=== PATIENT | female | born 2000 | race Caucasian/White ===

== ENCOUNTER 2020-02-04 15:02 | Outpatient (REF) | payer OTHER, SELFPAY | END 2020-02-04 15:03 | disposition home or self-care (01) | LOC: HO.HMGCLNP 15:02 | PROVIDERS: Visit Provider Nurse Practitioner Family | DX: R19.7 Diarrhea, unspecified (principal) | CPT/HCPCS: 87045; 87046; 87177; 87209 ==

== ENCOUNTER 2020-04-08 14:22 | Outpatient (REF) | payer OTHER, SELFPAY | END 2020-04-08 14:23 | disposition home or self-care (01) | LOC: HO.LAB 14:22 | PROVIDERS: Visit Provider Internal Medicine | DX: Z20.828 Contact with and (suspected) exposure to other viral communicable diseases (principal) | CPT/HCPCS: C9803; U0003 ==

== ENCOUNTER 2020-05-13 12:59 | Outpatient (REF) | payer OTHER, SELFPAY | END 2020-05-13 13:00 | disposition home or self-care (01) | LOC: HO.LAB 12:59 | PROVIDERS: Visit Provider Internal Medicine | DX: Z20.822 Contact with and (suspected) exposure to COVID-19 (principal) | CPT/HCPCS: 36415; C9803; U0003 ==

== ENCOUNTER 2020-06-18 13:08 | Outpatient (REF) | payer OTHER, SELFPAY ==
--- NOTE | ~2020-06-18 | US_ITS ---
EXAMINATION: US SCREENING AORTIC CLINICAL INFORMATION: Unspecified abdominal pain and abdominal bruit COMPARISON: None TECHNIQUE: Ultrasound of the abdominal aorta was performed. FINDINGS: Real-time ultrasound of the abdominal aorta is performed. AP and transverse measurements were taken of the proximal, mid and distal aorta. Measurements were taken of the right and left iliac arteries. There is no evidence of aneurysm. There is mild atherosclerotic disease. US/US abdominal aortic aneurysm IMPRESSION: No abdominal aortic or iliac artery aneurysm.
[2020-06-18 13:44] LABS: MANUAL DIFF FLAG NO
[2020-06-18 13:45] LABS: Basophils Percent Auto 0.3 % (0-2); Eosinophils Absolute Auto 0.1 X10*3/uL (0.0-0.4); Eosinophils Percent Auto 0.7 % (0-4); Hematocrit 42.2 % (37-47); Hemoglobin 14.2 g/dl (12.0-16.0); Imm Gran Abs Auto 0.01 X10*3/uL (0.00-0.03); Imm Gran Pct Auto 0.1 % (0.0-0.4); Lymphocytes Percent Auto 27.9 % (20-40); Mean Corpuscular HGB Conc 33.6 g/dl (31.0-35.0); Mean Corpuscular Volume 92.1 fL (80-98); Mean Platelet Volume 12.1 fL (9.4-12.3); Monocytes Absolute Auto 0.4 X10*3/uL (0.1-1.2); Monocytes Percent Auto 6.1 % (2-11); Neutrophils Absolute Auto 4.6 X10*3/uL (2.0-8.3); Neutrophils Percent Auto 64.9 % (45-73); Platelet Count 213 X10*3/uL (160-400); Red Blood Count 4.58 X10*6/uL (4.20-5.50); Red Cell Distribution Width 12.5 % (11.0-16.0)
[2020-06-18 14:15] LABS: Alanine Aminotransferase 21 U/L (0-31); Albumin Level 4.6 g/dL (3.5-5.0); Alkaline Phosphatase 50 U/L (39-117); Anion Gap 14 (12-20); Aspartate Amino Transferase 19 U/L (5-31); Bilirubin Total 0.7 mg/dL (0.0-1.0); Blood Urea Nitrogen 8 mg/dL (9-16); Calcium 9.2 mg/dL (8.4-10.2); Carbon Dioxide 25 mmol/L (22-29); Chloride 105 mmol/L (96-108); Estimated Glomerular Filt Rate > 60; Glucose Random 113 mg/dL (60-115); Potassium 4.1 mmol/L (3.3-5.1); Sodium 140 mmol/L (135-145); Total Protein 7.4 g/dL (6.5-8.0)
[2020-06-18 14:37] LABS: TSH reflex Free T4 1.02 uIU/mL (0.32-4.0)
[2020-06-21 17:26] LABS: TS Negative Control Passed; TS Panel A 0; TS Panel B 0; TS Positive Control Passed; TSpotTB Negative (SeeBelow)
== END 2020-06-18 13:09 | disposition home or self-care (01) ==
LOC: HO.HMGCX 13:08
PROVIDERS: Physician Assistant; PCP Internal Medicine; Visit Provider Nurse Practitioner Family
DX: Z02.1 Encounter for pre-employment examination (principal); R10.9 Unspecified abdominal pain; R11.2 Nausea with vomiting, unspecified; R19.7 Diarrhea, unspecified; R55 Syncope and collapse; R09.89 Other specified symptoms and signs involving the circulatory and respiratory systems; B02.9 Zoster without complications
CPT/HCPCS: 36415; 76706; 80053; 84443; 85025; 86481; 86787

== ENCOUNTER → 2020-10-21 12:55 | Outpatient (BNVA) | payer OTHER, SELFPAY | PROVIDERS: PCP Internal Medicine; Visit Provider Physician Assistant | DX: R19.7 Diarrhea, unspecified (principal); R11.0 Nausea | CPT/HCPCS: 99202 ==

== ENCOUNTER 2020-10-27 13:31 | Emergency (ER) | payer OTHER, SELFPAY ==
--- NOTE | 2020-10-27 | ECG_ITS ---
Test Reason : SYNCOPE Blood Pressure : / mmHG Vent. Rate : 077 BPM Atrial Rate : 077 BPM P-R Int : 102 ms QRS Dur : 086 ms QT Int : 370 ms P-R-T Axes : 050 065 008 degrees QTc Int : 418 ms Sinus rhythm with short NH Otherwise normal ECG No previous ECGs available Referred By: Generic ED Physician Electronically Signed By:VINICIUS RILEY MD
[2020-10-27 14:45] VITALS: BP 133/86; PULSE 82; RESP 16; TEMP 36.7; O2SAT 99; BMI 19.6
[2020-10-27 15:16] LABS: MANUAL DIFF FLAG NO
[2020-10-27 15:19] LABS: Basophils Percent Auto 0.2 % (0-2); Eosinophils Absolute Auto 0.1 X10*3/uL (0.0-0.4); Eosinophils Percent Auto 0.7 % (0-4); Hematocrit 43.1 % (37-47); Hemoglobin 14.4 g/dl (12.0-16.0); Imm Gran Abs Auto 0.02 X10*3/uL (0.00-0.03); Imm Gran Pct Auto 0.2 % (0.0-0.4); Lymphocytes Absolute Auto 1.4 X10*3/uL (1.2-4.9); Lymphocytes Percent Auto 16.6 % (20-40); Mean Corpuscular HGB Conc 33.4 g/dl (31.0-35.0); Mean Corpuscular Hemoglobin 31.3 pg (27.0-33.0); Mean Corpuscular Volume 93.7 fL (80-98); Mean Platelet Volume 11.3 fL (9.4-12.3); Monocytes Absolute Auto 0.5 X10*3/uL (0.1-1.2); Monocytes Percent Auto 5.7 % (2-11); Neutrophils Absolute Auto 6.4 X10*3/uL (2.0-8.3); Neutrophils Percent Auto 76.6 % (45-73); Platelet Count 219 X10*3/uL (160-400); Red Cell Distribution Width 12.4 % (11.0-16.0); White Blood Count 8.3 X10*3/uL (4.8-10.8)
[2020-10-27 15:40] LABS: Anion Gap 12 (12-20); Blood Urea Nitrogen 7 mg/dL (9-16); Calcium 9.8 mg/dL (8.4-10.2); Carbon Dioxide 28 mmol/L (22-29); Chloride 106 mmol/L (96-108); Creatinine Clr Calc Pharmacy 92.2; Estimated Glomerular Filt Rate > 60; Glucose Random 100 mg/dL (60-115); Potassium 4.5 mmol/L (3.3-5.1); Sodium 141 mmol/L (135-145)
[2020-10-27 15:55] LABS: Appearance Urine CLEAR; Color Urine COLORLESS; Glucose Urine UA NEG (NEG); Leukocyte Esterase Urine NEG (NEG); Nitrite Urine NEG (NEG); PH 6.5 (5.0-8.0); Specific Gravity - Urine <= 1.005 (1.005-1.025); Urine Blood NEG (NEG); Urine Ketones NEG (NEG); Urine Protein NEG (NEG-TRACE)
[2020-10-27 15:56] LABS: UPreg QC Valid YES; Urine Pregnancy NEGATIVE (NEGATIVE)
--- NOTE | 2020-10-27 17:54 | ED_ITS ---
HPI - Syncope General Chief Complaint: Syncope Stated Complaint: pt passed out 4x's in a month Time Seen by Provider: 10/27/20 17:44 Source: patient Mode of arrival: ambulatory Limitations: no limitations History of Present Illness HPI narrative: patient comes to the emergency room complaining of a near syncopal episode. Patient states that this afternoon, patient was lying on her couch, patient stood up quickly, and then started feeling lightheaded. Patient lowered herself down. Did not hit her head, did not lose consciousness. Patient states in the last month, this has happened [address] ates that she has been having diarrhea for over a month, currently being treated by gastroenterology. Patient denies chest pain, no shortness of breath. At this time patient is asymptomatic MD complaint: loss of consciousness Related Data Home Medications Medication Instructions Recorded Confirmed etonogestrel 0.12 mg-ethinyl 0 vag ring VAGINAL 02/04/20 10/21/20 estradiol 0.015 mg/24 hr vaginal ring Previous Rx's Medication Instructions Recorded pantoprazole 20 mg tablet,delayed 20 mg PO DAILY 30 Days #30 tab 09/13/20 release bisacodyl 5 mg tablet,delayed 10 mg PO ONCE 1 Days #2 tab 10/21/20 release loperamide 2 mg capsule 2 mg PO Q6H PRN #30 cap 10/21/20 polyethylene glycol 3350 17 238 g PO ONCE 1 Days #238 g 10/21/20 gram/dose oral powder Allergies Allergy/AdvReac Type Severity Reaction Status Date / Time No Known Allergies Allergy Verified 10/21/20 12:56 prazosin AdvReac Unknown heart Verified 10/21/20 12:56 palpitations sertraline AdvReac Unknown diarrhea Verified 10/21/20 12:56 Review of Systems Review of Systems: Constitutional : No Weight loss, No Fever, No Chills, No Night Sweats, No Fatigue, No Malaise ENT/Mouth : No Hearing loss, No Ear Pain, No Nasal Congestion, No Sinus Pain, No Hoarseness, No sore throat, No Rhinorrhea, No Swallowing Difficulty Eyes: No Eye Pain, No Swelling, No Redness, No Foreign Body, No Discharge, No Vision Changes Cardiovascular : No Chest Pain, No SOB, No Dyspnea on Exertion, No Orthopnea, No Edema, No Palpitations Respiratory : No Cough, No Sputum, No Wheezing, No Smoke Exposure, No Dyspnea Gastrointestinal : No Nausea, No Vomiting, No Diarrhea, No Constipation, No abdominal Pain, No Hematochezia, No Melena Genitourinary : no irregular bleeding, No Dysuria, No Urinary Frequency, No Hematuria, No Urinary Incontinence, No Urgency, No Flank Pain, No Urinary Flow Changes, No Hesitancy Musculoskeletal : No joint pain, No Myalgias, No Joint Swelling Skin : No Skin Lesions, No rash Neuro : No Weakness, No Numbness, No Paresthesias, complaining of blacking out / lightheadedness when patient stands up from a sitting or lying down position Psych : No Anxiety/Panic, No Depression, No SI/HI/AH/VH, No Social Issues, Heme/Lymph: No Bruising, No Bleeding,No Lymphadenopathy Endocrine : No Polyuria, No Polydipsia, No Temperature Intolerance [facility] Family History Family History (Updated 10/27/20 @ 15:15 by Ellie Bashir PA-C) Unknown No family history of colorectal cancer Social History Social History (Updated 10/27/20 @ 15:15 by Ellie Bashir PA-C) Household Members Other:: family Alcohol intake: never Cigarettes Per Day: 2 Advance Directives: No Advance Directives Information Provided: Yes Physical Exam Vital Signs: Vital Signs: Last Vital Signs Temp 98.1 F 10/27/20 14:45 Pulse 82 10/27/20 14:45 Resp 16 10/27/20 14:45 BP 133/86 10/27/20 14:45 Pulse Ox 99 10/27/20 14:45 Body Mass Index 19.6 Appearance: Alert. Oriented X3. No acute distress. Eyes: Pupils equal, round and reactive to light. ENT: Pharynx normal. Neck: Normal inspection. Neck supple. No lymph nodes noted. No crepitus CVS: Normal heart rate and rhythm. Pulses normal. Normal S1 and S2 Respiratory: No respiratory distress. Breath sounds normal. No Wheezing. No rales Abdomen: Soft and nontender. No rigidity. No distention. good BS x4 Skin: Skin warm and dry. Normal skin color. Normal skin turgor. Extremities: No lower extremity edema. No Lacerations. No Rash Neuro: Oriented X 3. No motor deficit. No sensory deficit. Moving all extermities. No slurred speech. Course Course Course Narrative: The troponin and the D-dimer are pending. Patient would like to be discharged home. Patient states that her sons and her father home alone, needs to go take care of them. Patient requesting to be discharged. I discussed with the patient that we cannot rule out cardiac etiology or pulmonary embolism. I discussed the risks of leaving against medical advice, Including . Patient is aware and agrees with the AMA plan. I discussed with the patient that she is likely passing out secondary to orthostatic hypotension. The syncopal episodes are related to sitting and standing. I discussed with the patient that she will likely also benefit from a Holter monitor, she will follow-up with her primary care physician and discuss this. MDM - Syncope Lab Data Result diagrams: 10/27/20 15:03 10/27/20 15:03 Labs: Lab Results 10/27/20 10/27/20 10/27/20 Range/Units 15:03 15:03 15:31 WBC 8.3 (4.8-10.8) X10*3/uL RBC 4.60 (4.20-5.50) X10*6/uL Hgb 14.4 (12.0-16.0) g/dl Hct 43.1 (37-47) % MCV 93.7 (80-98) fL MCH 31.3 (27.0-33.0) pg MCHC 33.4 (31.0-35.0) g/dl RDW 12.4 (11.0-16.0) % Plt Count 219 (160-400) X10*3/uL MPV 11.3 (9.4-12.3) fL Immature Gran % (Auto) 0.2 (0.0-0.4) % Neut % (Auto) 76.6 H (45-73) % Lymph % (Auto) 16.6 L (20-40) % Coal % (Auto) 5.7 (2-11) % Eos % (Auto) 0.7 (0-4) % Baso % (Auto) 0.2 (0-2) % Lymph # (Auto) 1.4 (1.2-4.9) X10*3/uL [place] # (Auto) 0.5 (0.1-1.2) X10*3/uL Eos # (Auto) 0.1 (0.0-0.4) X10*3/uL Baso # (Auto) 0.0 (0.0-0.2) X10*3/uL Abs Immat Gran (auto) 0.02 (0.00-0.03) X10*3/uL Absolute Neuts (auto) 6.4 (2.0-8.3) X10*3/uL Absolute Nucleated RBC 0.000 (0.0-0.012) X10*3/uL Nucleated RBC % (auto) 0.0 (0.0-0.2) /100WBC Sodium 141 (135-145) mmol/L Potassium 4.5 (3.3-5.1) mmol/L Chloride 106 (96-108) mmol/L Carbon Dioxide 28 (22-29) mmol/L Anion Gap 12 (12-20) BUN 7 L (9-16) mg/dL Creatinine 0.76 (0.5-1.4) mg/dL Estim Creat Clear Calc 92.2 Estimated GFR > 60 Random Glucose 100 (60-115) mg/dL Calcium 9.8 D (8.4-10.2) mg/dL Urine Color COLORLESS Urine Appearance CLEAR Urine pH 6.5 (5.0-8.0) Ur Specific [employer] [place] <= 1.005 (1.005-1.025) Urine Protein NEG (NEG-TRACE) MG/DL Urine Glucose (UA) NEG (NEG) MG/DL Urine Ketones NEG (NEG) MG/DL Urine Blood NEG (NEG) Urine Nitrite NEG (NEG) Ur Leukocyte Esterase NEG (NEG) Urine Test (NEGATIVE) 10/27/20 Range/Units 15:31 WBC (4.8-10.8) X10*3/uL RBC (4.20-5.50) X10*6/uL Hgb (12.0-16.0) g/dl Hct (37-47) % MCV (80-98) fL MCH (27.0-33.0) pg MCHC (31.0-35.0) g/dl RDW (11.0-16.0) % Plt Count (160-400) X10*3/uL MPV (9.4-12.3) fL Immature Gran % (Auto) (0.0-0.4) % Neut % (Auto) (45-73) % Lymph % (Auto) (20-40) % [place] % (Auto) (2-11) % Eos % (Auto) (0-4) % Baso % (Auto) (0-2) % Lymph # (Auto) (1.2-4.9) X10*3/uL [place] # (Auto) (0.1-1.2) X10*3/uL Eos # (Auto) (0.0-0.4) X10*3/uL Baso # (Auto) (0.0-0.2) X10*3/uL Abs Immat Gran (auto) (0.00-0.03) X10*3/uL Absolute Neuts (auto) (2.0-8.3) X10*3/uL Absolute Nucleated RBC (0.0-0.012) X10*3/uL Nucleated RBC % (auto) (0.0-0.2) /100WBC Sodium (135-145) mmol/L Potassium (3.3-5.1) mmol/L Chloride (96-108) mmol/L Carbon Dioxide (22-29) mmol/L Anion Gap (12-20) BUN (9-16) mg/dL Creatinine (0.5-1.4) mg/dL Estim Creat Clear Calc Estimated GFR Random Glucose (60-115) mg/dL Calcium (8.4-10.2) mg/dL Urine Color Urine Appearance Urine pH (5.0-8.0) Ur Specific [employer] (1.005-1.025) Urine Protein (NEG-TRACE) MG/DL Urine Glucose (UA) (NEG) MG/DL Urine Ketones (NEG) MG/DL Urine Blood (NEG) Urine Nitrite (NEG) Ur Leukocyte Esterase (NEG) Urine Test NEGATIVE (NEGATIVE) ECG Data Attestation: I personally reviewed and interpreted this ECG as follows: ( sinus rhythm, heart rate 77, no ST segment depression or elevation, nonspecific T-wave inversion in lead 3, QTC 418) Discharge Plan Discharge Clinical Impression: Autonomic orthostatic hypotension Patient Disposition: Left Against Medical Advice Instructions: Syncope (ED), Hypotension (ED) Additional Instructions: please follow-up with her primary care physician, you may need a Holter monitor. Please follow-up with your primary care physician tomorrow. If you have any wo rsening or new symptoms, please return to the emergency room or call 911 Prescriptions: No Action pantoprazole 20 mg tablet,delayed release (DR/EC) 20 mg PO DAILY 30 Days Qty: 30 RF: 1 etonogestrel-ethinyl estradiol 0.12-0.015 mg/24 hr ring 0 vag ring vaginal RF: 0 loperamide [Imodium A-D] 2 mg capsule 2 mg PO Q6H PRN (Reason: loose stool) Qty: 30 RF: 0 bisacodyl [Dulcolax (bisacodyl)] 5 mg tablet,delayed release (DR/EC) 10 mg PO ONCE 1 Days Qty: 2 RF: 0 polyethylene glycol 3350 [Miralax] 17 gram/dose powder 238 g PO ONCE 1 Days Qty: 238 RF: 0
[2020-10-27 18:53] LABS: Troponin-I High Sensitivity < 3.5 ng/L (<3.5-17.0)
== END 2020-10-27 19:05 | disposition left against medical advice (07) ==
PROVIDERS: Emergency Provider Emergency Medicine; PCP Internal Medicine
DX: I95.1 Orthostatic hypotension (principal)
CPT/HCPCS: 36415; 80048; 81003; 81025; 84484; 85025; 93005; 99283

== ENCOUNTER 2020-11-25 11:56 | Day surgery (SDC) | payer OTHER, SELFPAY ==
[2020-11-18 12:38] VITALS: BMI 19.2
[2020-11-25] VITALS (7 sets, daily range): BP systolic 105–135; BP diastolic 57–90; PULSE 48–72; RESP 10–18; TEMP 36.1–36.7; O2SAT 99–100
[2020-11-25 12:33] LABS: UPreg QC Valid YES; Urine Pregnancy NEGATIVE (NEGATIVE)
--- NOTE | 2020-11-25 14:13 | MHC.SHP ---
Pre-Procedural Eval Section A Date of Service: 11/25/20 Section B Chief Complaint: nausea Relevant Family History (Specify if Yes): No Relevant Social History: Tobacco Use Present Medications: see Short Stay Collaborative assessment (ocp, PPI) Medical History: No relevant PMH History of Previous Operations: No relevant previous surgery Allergies: Allergies Allergy/AdvReac Type Severity Reaction Status Date / Time prazosin AdvReac Unknown heart Verified 11/18/20 12:26 palpitations sertraline AdvReac Unknown diarrhea Verified 11/18/20 12:26 Review of Systems Sugical H&P ROS: Negative: Constitution, Cardiovascular, Respiratory, Neurological, Psychiatric, Hem-Onc, Allergic/Immunologic, Gastrointestinal, Genitourinary, Musculoskeletal, Integumentary, Endocrine and Eyes/Ears/Nose/Throat Exam Surgical H&P Exam: Normal: HEENT, Normal: Heart, Normal: Lungs, Normal: Extremities, Normal: Abdomen, Normal: Skin and Normal: Neurological Plan Diagnosis/Plan: Unchanged I have reviewed the history and physical and performed a pertinent physical examination on my patient. No changes have occurred unless specified.
--- NOTE | 2020-11-25 15:20 | P.OP_ITS ---
Operative Note Operative Note Date of Service: 11/25/20 Narrative: Operative Information Procedure Description: EGD, Colonoscopy FLEXIBLE TRANSORAL UPPER GASTROINTESTINAL ENDOSCOPY AND COLONOSCOPY PROCEDURE NOTE UPPER ENDOSCOPY Consent: Indications for the procedure and potential complications of bleeding, perforation, reaction to medications and missed diagnosis were discussed with the patient and informed consent was obtained. Instrument: Olympus GIF H 190 J mid size upper endoscope Monitoring: Vital signs and clinical assessment, continuous EKG monitoring, Pulse oximetry, Carbon Dioxide monitoring and blood pressure monitoring were done throughout the procedure. Procedure: The patient was placed in the left lateral decubitis position and pre-procedure medications were administered and a bite block was placed. The endoscope was inserted into the mouth and advanced under direct vision to the third part of duodenum. A careful inspection was made as the upper endoscope was withdrawn including a retroflexed examination of the proximal stomach; Findings and interventions are described below. Findings: Larynx:normal Esophagus: GE junction at 40 cm, diaphragm hiatus at 40 cm, normal mucosa - random bx taken Stomach: Normal mucosa. Biopsies were obtained. Grade 2 flap valve on retroflexed examination of the cardia. Seemed to be reduced gastric motility. Duodenum: Normal bulb and descending duodenum, bx taken Intervention: Biopsies as noted above COLONOSCOPY Instrument: Olympus variable stiffness pediatric scope 190L Colonoscopy Monitoring: Vital signs and clinical assessment, continuous EKG monitoring, Pulse oximetry, Carbon Dioxide monitoring and blood pressure monitoring were done throughout the procedure. Colon withdrawal time was 7 minutes. Procedure: The patient was placed in the left lateral decubitis position and pre-procedure medications were administered. After a digital rectal examination of the ano-rectum, the video colonoscope was inserted into the rectum and advanced through the colon to the cecum/TI. The colonoscope was slowly withdrawn in a retrograde panoramic fashion and the colon mucosa was carefully examined including a retroflexed view of the rectum. Findings and interventions are described below. Procedure Difficulty:easy Findings: Appeared to be reduced colonic motility Terminal Ileum-normal, bx taken random colon bx from right and then left and rectal segments Cecum:normal Ascending Colon: normal Transverse Colon -normal Descending Colon:normal Sigmoid Colon: normal Rectum: Retroflexion with small internal hemorrhoids, grade I, mild erythema noted. Anorectum - normal Colon preparation: [place] Bowel Preparation Scale Right colon; 3 Transverse colon: 3 Left colon; 3 (0 = Unprepared colon segment with mucosa not seen due to solid stool that cannot be cleared. 1 = Portion of mucosa of the colon segment seen, but other areas of the colon segment not well seen due to staining, residual stool and/or opaque liquid. 2 = Minor amount of residual staining, small fragments of stool and/or opaque liquid, but mucosa of colon segment seen well. 3 = Entire mucosa of colon segment seen well with no residual staining, small fragments of stool or opaque liquid) Impression and Post Procedure Diagnosis: Endoscopy Findings: possible reduced gastric motility Colonoscopy Findings: internal hemorrhoids Plan: Await Pathology results Repeat Colonoscopy aged 45 or earlier if clinically indicated High fiber diet leaflet avoid straining at stool, epsom salts and sitz bath, anusol supps or cream consider sitz marker study to check for colonic dyssnergia and GES for gastroparesis if bx negative Above findings were reviewed with the patient and relevant handouts were provided if indicated.
--- NOTE | 2020-11-25 15:20 | PM.OP ---
Brief Operative Note Date of Service: 11/25/20 Pre-op diagnosis: abdominal pain Post-op diagnosis: same Procedure: see op note Surgeon: Hui Gardiner MD Anesthesia: MAC Was an Neon Light Installer used for this Procedure?: No Estimated blood loss (mL): 0 Condition: stable Disposition: PACU
== END 2020-11-25 15:53 | disposition home or self-care (01) ==
PROVIDERS: Anesthesiology; PCP Internal Medicine; Visit Provider Internal Medicine Gastroenterology
PROC: (CPT 45380; principal; 2020-11-25 13:00)
DX: K31.84 Gastroparesis (principal); R11.0 Nausea; K64.0 First degree hemorrhoids; F17.210 Nicotine dependence, cigarettes, uncomplicated; Z79.899 Other long term (current) drug therapy; Z88.8 Allergy status to other drugs, medicaments and biological substances; K44.9 Diaphragmatic hernia without obstruction or gangrene
CPT/HCPCS: 45380; 43239; 81025; 88305; 88342

== ENCOUNTER 2020-12-16 11:37 | Emergency (ER) | payer OTHER, SELFPAY ==
[2020-12-16 12:34] VITALS: BP 119/81; PULSE 60; RESP 16; TEMP 37.1; O2SAT 99; BMI 19.8
[2020-12-16 13:43] VITALS: BP 104/74; PULSE 66; RESP 17; TEMP 37; O2SAT 100
--- NOTE | 2020-12-16 13:51 | PC.NURSE ---
iv inserted labs drawn, pt awaiting to see provider
[2020-12-16 13:55] LABS: MANUAL DIFF FLAG NO
[2020-12-16 13:57] LABS: Basophils Percent Auto 0.2 % (0-2); Eosinophils Absolute Auto 0.1 X10*3/uL (0.0-0.4); Eosinophils Percent Auto 1.2 % (0-4); Hematocrit 35.2 % (37-47); Hemoglobin 12.1 g/dl (12.0-16.0); Imm Gran Abs Auto 0.01 X10*3/uL (0.00-0.03); Imm Gran Pct Auto 0.2 % (0.0-0.4); Lymphocytes Absolute Auto 1.8 X10*3/uL (1.2-4.9); Mean Corpuscular HGB Conc 34.4 g/dl (31.0-35.0); Mean Corpuscular Hemoglobin 31.5 pg (27.0-33.0); Mean Corpuscular Volume 91.7 fL (80-98); Mean Platelet Volume 11.6 fL (9.4-12.3); Monocytes Absolute Auto 0.4 X10*3/uL (0.1-1.2); Monocytes Percent Auto 7.8 % (2-11); Neutrophils Absolute Auto 2.7 X10*3/uL (2.0-8.3); Neutrophils Percent Auto 54.6 % (45-73); Platelet Count 188 X10*3/uL (160-400); Red Blood Count 3.84 X10*6/uL (4.20-5.50); Red Cell Distribution Width 12.1 % (11.0-16.0)
[2020-12-16 14:33] LABS: Alanine Aminotransferase 24 U/L (0-31); Albumin Level 3.8 g/dL (3.5-5.0); Alkaline Phosphatase 40 U/L (39-117); Anion Gap 10 (12-20); Aspartate Amino Transferase 18 U/L (5-31); Bilirubin Direct 0.2 mg/dL (0.0-0.5); Bilirubin Total 0.4 mg/dL (0.0-1.0); Blood Urea Nitrogen 8 mg/dL (9-16); Calcium 8.5 mg/dL (8.4-10.2); Carbon Dioxide 23 mmol/L (22-29); Chloride 111 mmol/L (96-108); Creatinine Clr Calc Pharmacy 101.1; Estimated Glomerular Filt Rate > 60; Glucose Random 93 mg/dL (60-115); Lipase 15 U/L (8-78); Potassium 3.8 mmol/L (3.3-5.1); Sodium 140 mmol/L (135-145)
--- NOTE | 2020-12-16 15:17 | ED.NAVMDI ---
HPI - Nausea/Vomiting/Diarrhea General Chief complaint: Nausea/Vomiting/Diarrhea Stated complaint: multiple complaints Time Seen by Provider: 12/16/20 15:01 Source: patient Mode of arrival: ambulatory Limitations: no limitations History of Present Illness HPI Narrative: [age] year old female presents 4 months of diarrhea and for which she thinks is a warm that she saw in her stool this morning. Patient had a colonoscopy November 25, which showed grade 1 internal hemorrhoids. No bloody stool, no vomiting, no abdominal pain. No UTI symptoms. PCP has ordered stool cultures. Patient has GI follow-up December 30. Related Data Home Medications Medication Instructions Recorded Confirmed etonogestrel 0.12 mg-ethinyl 0 vag ring VAGINAL 02/04/20 12/06/20 estradiol 0.015 mg/24 hr vaginal ring Previous Rx's Medication Instructions Recorded albendazole 200 mg tablet 400 mg PO ONCE #2 tab 12/16/20 Allergies Allergy/AdvReac Type Severity Reaction Status Date / Time prazosin AdvReac Unknown heart Verified 12/16/20 12:43 palpitations sertraline AdvReac Unknown diarrhea Verified 12/16/20 12:43 Review of Systems Review of Systems: Constitutional : No Weight loss, No Fever, No Chills, No Night Sweats,No Fatigue, No Malaise ENT/Mouth : No Hearing loss, No Ear Pain, No Nasal Congestion, NoSinus Pain, No Hoarseness, No sore throat, No Rhinorrhea, NoSwallowing Difficulty Eyes: No Eye Pain, No Swelling, No Redness, No Foreign Body, NoDischarge, No Vision Changes Cardiovascular : No Chest Pain, No SOB, No Dyspnea on Exertion, NoOrthopnea, No Edema, No Palpitations Respiratory : No Cough, No Sputum, No Wheezing, No Smoke Exposure, No Dyspnea Gastrointestinal : Diarrhea, No Nausea, No Vomiting,, NoConstipation, No abdominal Pain, No Hematochezia, No Melena Genitourinary : no irregular bleeding, No Dysuria, No UrinaryFrequency, No Hematuria, No Urinary Incontinence, No Urgency, No FlankPain, No Urinary Flow Changes, No Hesitancy Musculoskeletal : No joint pain, No Myalgias, No Joint Swelling Skin : No Skin Lesions, No rash Neuro : No Weakness, No Numbness, No Paresthesias, No Loss ofConsciousness, No Dizziness, No Headache Psych : mild anxiety, tremors in hands, , No Depression, No SI/HI/AH/VH, No Social Issues, Endocrine : No Polyuria, No Polydipsia, No Temperature Intolerance [facility] Past Medical History Medical History Syncope, near Family History Family History Unknown No family history of colorectal cancer Other Mental health disorder Social History Social History Household Members Other:: family Housing: Apartment Are you a primary nurse care manager to a significant other at home: No Do you presently have visiting nurse or other home services: No Alcohol intake: never Patient Tobacco Use Status: Current everyday Tobacco user Tobacco use type: Cigarette Cigarettes Per Day: 2 Use of substances other than those prescribed or required for medical reasons: Yes Substance Use Type: Marijuana Advance Directives: Yes Advance Directives Information Provided: Yes Advance Directives on File: No Current occupational status: unemployed Physical Exam Vital Signs: Vital Signs: Last Vital Signs Temp 98.6 F 12/16/20 13:43 Pulse 66 12/16/20 13:43 Resp 17 12/16/20 13:43 BP 104/74 12/16/20 13:43 Pulse Ox 100 12/16/20 13:43 Body Mass Index 19.8 Appearance: Alert. Oriented X3. No acute distress. Head: Normal external exam. Normocephalic. Atraumatic. ?No Haile signs noted. No raccoon eyes noted Eyes: PERRLA. EOMI. Conjunctiva and sclera normal. Eyelids normal. ENT: EAC normal. TM's Normal. Pharynx normal. Uvula midline. Moist mucous membranes. ??No trismus noted. ?No drooling noted. ?No muffled voice noted. Neck: Normal inspection. Neck supple. FROM. No adenopathy. Thyroid Normal. No meningeal signs. No neck mass noted. CVS: Normal heart rate and rhythm. Heart sound normal. Pulses normal throughout. ?No murmurs/rales/gallops. Respiratory: No respiratory distress. Painless inspiration. Breath sounds normal. No wheezes/rales/rhonchi noted. Chest nontender. ??No accessory muscle usage noted or decreased air movement noted. Abdomen: Soft and nontender. Bowel sounds normal in all 4 quadrants. No distention noted. ?No organomegaly noted. ?No visible injury noted. Back: ?No CVA tenderness. ?Full range of motion noted. ?No rashes/lesion/induration/fluctuance or signs of infection noted. Skin: Skin warm and dry. ?Normal skin color. ?Normal skin turgor. No rashes/lesions/lacerations noted. Extremities: No lower extremity edema. ??Extremities exhibit normal range of motion. ?Extremities nontender. Neuro: Oriented X 3. ?No motor deficit. ?No sensory deficit. ?Reflexes normal. ?Normal steady gait. ?No focal neuro deficits noted. Vascular: + radial pulses/+ 2 distal pedal pulses/+2 dorsalis pedis b/l. ?Normal cap refill. ?No cyanosis noted to upper extremity nails and lower extremity toes nails. Course Course Course Narrative: 20-year-old non female presents 4 months of diarrhea for which he is being followed with her primary care provider and Gastroenterology. Today patient is concerned because she thinks she saw a worm in her stool. Patient shows me a photo on her phone, which could possibly be an Ascaris worm. It is hard to tell from this photo. Treated patient with albendazole, counseled patient to collect any other were Sil[place] structures and bring them into her primary care or urgent care if she was to happen again. They return precautions. MDM - Nausea/Vomiting/Diarrhea Lab Data Result diagrams: 12/16/20 13:49 12/16/20 13:49 Labs: Lab Results 12/16/20 12/16/20 Range/Units 13:49 13:49 WBC 5.0 (4.8-10.8) X10*3/uL RBC 3.84 L (4.20-5.50) X10*6/uL Hgb 12.1 (12.0-16.0) g/dl Hct 35.2 L (37-47) % MCV 91.7 (80-98) fL MCH 31.5 (27.0-33.0) pg MCHC 34.4 (31.0-35.0) g/dl RDW 12.1 (11.0-16.0) % Plt Count 188 (160-400) X10*3/uL MPV 11.6 (9.4-12.3) fL Immature Gran % (Auto) 0.2 (0.0-0.4) % Neut % (Auto) 54.6 (45-73) % Lymph % (Auto) 36.0 (20-40) % [place] % (Auto) 7.8 (2-11) % Eos % (Auto) 1.2 (0-4) % Baso % (Auto) 0.2 (0-2) % Lymph # (Auto) 1.8 (1.2-4.9) X10*3/uL [place] # (Auto) 0.4 (0.1-1.2) X10*3/uL Eos # (Auto) 0.1 (0.0-0.4) X10*3/uL Baso # (Auto) 0.0 (0.0-0.2) X10*3/uL Abs Immat Gran (auto) 0.01 (0.00-0.03) X10*3/uL Absolute Neuts (auto) 2.7 (2.0-8.3) X10*3/uL Absolute Nucleated RBC 0.000 (0.0-0.012) X10*3/uL Nucleated RBC % (auto) 0.0 (0.0-0.2) /100WBC Sodium 140 (135-145) mmol/L Potassium 3.8 (3.3-5.1) mmol/L Chloride 111 H (96-108) mmol/L Carbon Dioxide 23 (22-29) mmol/L Anion Gap 10 L (12-20) BUN 8 L (9-16) mg/dL Creatinine 0.70 (0.5-1.4) mg/dL Estim Creat Clear Calc 101.1 Estimated GFR > 60 Random Glucose 93 (60-115) mg/dL Calcium 8.5 D (8.4-10.2) mg/dL Total Bilirubin 0.4 (0.0-1.0) mg/dL Direct Bilirubin 0.2 (0.0-0.5) mg/dL AST 18 (5-31) U/L ALT 24 (0-31) U/L Alkaline Phosphatase 40 (39-117) U/L Total Protein 6.0 L (6.5-8.0) g/dL Albumin 3.8 (3.5-5.0) g/dL Lipase 15 (8-78) U/L Beta HCG, Quant < 2 mIU/mL Discharge Plan Discharge Clinical Impression: Diarrhea Qualifiers: Diarrhea type: unspecified type Qualified Code(s): R19.7 - Diarrhea, unspecified Patient Disposition: Home, Self-Care Instructions: Acute Diarrhea (ED) Additional Instructions: Please take the pill that I sent to your pharmacy. Please collect any other worm like structures in her stool and bring them in to be evaluated. Please return to the emergency room if you have fevers, abdominal pain, or any other new or concerning symptoms. Prescriptions: New albendazole 200 mg tablet 400 mg PO ONCE Qty: 2 RF: 0 No Action etonogestrel-ethinyl estradiol 0.12-0.015 mg/24 hr ring 0 vag ring vaginal RF: 0
[2020-12-16 15:52] LABS: HCG Quantitative < 2 mIU/mL
== END 2020-12-16 18:29 | disposition home or self-care (01) ==
PROVIDERS: Physician Assistant; Emergency Provider Internal Medicine; PCP Internal Medicine
DX: R19.7 Diarrhea, unspecified (principal)
CPT/HCPCS: 36415; 80048; 80076; 83690; 84702; 85025; 99283; 99284

== ENCOUNTER 2020-12-22 10:55 | Outpatient (REF) | payer OTHER, SELFPAY ==
[2020-12-22 12:31] LABS: MANUAL DIFF FLAG NO
[2020-12-22 12:45] LABS: Basophils Percent Auto 0.4 % (0-2); Eosinophils Percent Auto 0.6 % (0-4); Hematocrit 39.6 % (37-47); Hemoglobin 13.5 g/dl (12.0-16.0); Imm Gran Abs Auto 0.02 X10*3/uL (0.00-0.03); Imm Gran Pct Auto 0.3 % (0.0-0.4); Lymphocytes Absolute Auto 1.1 X10*3/uL (1.2-4.9); Lymphocytes Percent Auto 16.2 % (20-40); Mean Corpuscular HGB Conc 34.1 g/dl (31.0-35.0); Mean Corpuscular Hemoglobin 31.5 pg (27.0-33.0); Mean Corpuscular Volume 92.5 fL (80-98); Mean Platelet Volume 12.4 fL (9.4-12.3); Monocytes Absolute Auto 0.4 X10*3/uL (0.1-1.2); Monocytes Percent Auto 5.3 % (2-11); Neutrophils Absolute Auto 5.4 X10*3/uL (2.0-8.3); Neutrophils Percent Auto 77.2 % (45-73); Platelet Count 211 X10*3/uL (160-400); Red Blood Count 4.28 X10*6/uL (4.20-5.50); Red Cell Distribution Width 12.7 % (11.0-16.0)
[2020-12-22 13:29] LABS: Erythrocyte Sedimentation Rate 5 MM/HR (0-20)
[2020-12-22 13:32] LABS: Alanine Aminotransferase 21 U/L (0-31); Albumin Level 4.3 g/dL (3.5-5.0); Alkaline Phosphatase 47 U/L (39-117); Anion Gap 12 (12-20); Aspartate Amino Transferase 18 U/L (5-31); Bilirubin Total 0.4 mg/dL (0.0-1.0); Blood Urea Nitrogen 8 mg/dL (9-16); C Reactive Protein 0.28 mg/dL (< or = 0.50); Calcium 9.4 mg/dL (8.4-10.2); Carbon Dioxide 24 mmol/L (22-29); Chloride 109 mmol/L (96-108); Estimated Glomerular Filt Rate > 60; Glucose Random 91 mg/dL (60-115); Potassium 4.2 mmol/L (3.3-5.1); Sodium 141 mmol/L (135-145)
== END 2020-12-22 10:56 | disposition home or self-care (01) ==
LOC: HO.LAB 10:55
PROVIDERS: PCP Internal Medicine; Referring Provider Internal Medicine; Visit Provider Physician Assistant
DX: R19.7 Diarrhea, unspecified (principal); R10.11 Right upper quadrant pain; R74.01 Elevation of levels of liver transaminase levels
CPT/HCPCS: 36415; 80053; 85025; 85652; 86140; 99212

== ENCOUNTER 2020-12-23 03:10 | Outpatient (REF) | payer OTHER, SELFPAY ==
[2020-12-23 10:43] LABS: Leukocytes Stool Qualitative NEGATIVE (NEGATIVE)
[2020-12-23 10:54] LABS: CDiff Gene PCR NEGATIVE (Negative)
[2020-12-28 21:56] LABS: Calprotectin, Fecal 16 mcg/g
== END 2020-12-23 03:11 | disposition home or self-care (01) ==
LOC: HO.LNP 03:10
PROVIDERS: Visit Provider Physician Assistant
DX: R19.7 Diarrhea, unspecified (principal)
CPT/HCPCS: 83993; 87045; 87046; 87329; 87493; 89055

== ENCOUNTER → 2021-01-25 08:07 | Outpatient (BNVA) | payer OTHER, SELFPAY | PROVIDERS: PCP Internal Medicine; Referring Provider Internal Medicine; Visit Provider Physician Assistant ==

== ENCOUNTER 2021-07-08 09:32 | Outpatient (REF) | payer OTHER, SELFPAY ==
[2021-07-10 22:01] LABS: TS Negative Control Passed; TS Panel A 0; TS Panel B 0; TS Positive Control Passed; TSpotTB Negative (Negative)
== END 2021-07-08 09:33 | disposition home or self-care (01) ==
LOC: HO.LAB 09:32
PROVIDERS: PCP Internal Medicine; Visit Provider Internal Medicine
DX: Z11.1 Encounter for screening for respiratory tuberculosis (principal)
CPT/HCPCS: 36415; 86481

== ENCOUNTER 2022-08-01 09:43 | Outpatient (REF) | payer OTHER, SELFPAY ==
[2022-08-03 15:13] LABS: TS Negative Control Passed; TS Panel A 0; TS Panel B 0; TS Positive Control Passed; TSpotTB Negative (Negative)
== END 2022-08-01 09:44 | disposition home or self-care (01) ==
LOC: HO.LAB 09:43
PROVIDERS: PCP Internal Medicine; Visit Provider Internal Medicine
DX: Z11.1 Encounter for screening for respiratory tuberculosis (principal)
CPT/HCPCS: 36415; 86481

== ENCOUNTER 2022-12-29 09:57 | Outpatient (AMB) | payer OTHER, SELFPAY ==
--- NOTE | 2022-12-29 10:02 | AM.OFFVISNUR ---
Intake Intake Visit Reasons: HEP B Allergies prazosin Adverse Reaction (Unknown, Verified 01/03/22 14:23) heart palpitations sertraline Adverse Reaction (Unknown, Verified 01/03/22 14:23) diarrhea Immunizations Recombivax HB (PF) Performing Provider: Mary Ellen Kapadia MD Administered by: Renata Fall RN on 12/29/22 10:10 Dose Route Admin Location Lot Number Expiration Date NDC [employer] 1 mL IM Left Deltoid [id number] 04/01/23 09692-368-14 [employer] VIS Given Date VIS Provided VIS Publication Date 12/29/22 Single Vaccine 22 Eligibility Eligibility Date Funding Source Not [facility] Eligible 12/29/22 Private Administration Comments: Pt aware to return in one month and four months to complete series. Coding Diagnoses Assessment & Plan Assessment & Plan Orders: Orders Hepatitis B Adult Immunization Today Z23 - Encounter for immunization
== END 2022-12-29 11:31 | disposition home or self-care (01) ==
LOC: HO.HMGC 09:57
PROVIDERS: PCP Nurse Practitioner Family; Visit Provider Internal Medicine
DX: Z23 Encounter for immunization (principal)
CPT/HCPCS: 90471; 90746

== ENCOUNTER 2023-01-29 09:34 | Outpatient (AMB) | payer OTHER, SELFPAY ==
--- NOTE | 2023-01-29 09:42 | AM.OFFVISNUR ---
Intake Intake Visit Reasons: Hep B Shot-2nd Dose Intake Note: Hep B #2 Allergies prazosin Adverse Reaction (Unknown, Verified 01/03/22 14:23) heart palpitations sertraline Adverse Reaction (Unknown, Verified 01/03/22 14:23) diarrhea Immunizations Recombivax HB (PF) 10 mcg/mL intramuscular suspension Performing Provider: Mary Ellen Kapadia MD [place] [facility] Documented (not given) by: Renata Fall RN on 01/29/23 09:48 Reason Not Given: Not Given Engerix-B (PF) 20 mcg/mL intramuscular suspension Performing Provider: Mary Ellen Kapadia MD Performing Location: [facility] Administered by: Renata Fall RN on 01/29/23 09:55 Dose Route Admin Location Dispensed Lot Number Expiration Date NDC 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
== END 2023-01-29 11:47 | disposition home or self-care (01) ==
PROVIDERS: PCP Nurse Practitioner Family; Visit Provider Internal Medicine
DX: Z23 Encounter for immunization (principal)
CPT/HCPCS: 90471; 90746

== ENCOUNTER 2023-03-08 13:22 | Outpatient (AMB) | payer OTHER, SELFPAY ==
--- NOTE | 2023-03-08 13:24 | A.OFFPC_ITS ---
Vital Signs 03/08/23 13:26 Height 5 ft 3 in Weight 131 lb BMI 23.2 BP 110/60 Blood Pressure Location Lt brachial Position Sitting Pulse 89 Pulse Source Pulse Oximeter Pulse Oximetry (%) 97 Oxygen Delivery Method Room Air Intake Visit Reasons: Transfer of care Kang/ SUE request Intake Note: Patient here transferring of care from Dr Kang PE request Director Airport Required: No Accompanied by: Significant Other Allergies prazosin Adverse Reaction (Unknown, Verified 03/08/23 13:40) heart palpitations sertraline Adverse Reaction (Unknown, Verified 03/08/23 13:40) diarrhea Medication List - Last Reconciled 03/08/23 by TOMMIE Camejo aripiprazole 5 mg PO DAILY escitalopram oxalate 5 mg PO DAILY etonogestrel-ethinyl estradiol 0.12-0.015 mg/24 hr 0 vag rings vaginal lamotrigine 50 mg PO DAILY prazosin 2 mg PO BEDTIME Tobacco use date assessed: 03/08/23 Dental Screening Dental Screen Date: 03/08/23 Did you have a dental visit in the last 12 months?: No Did you have a dental problem in the last 6 months where you did not have access to dental care?: No Was dental information given to patient?: Patient has dentist HPI HPI Comments History of Present Illness Details 23-year-old female past medical history significant for IBS and lactose intolerance. Patient presents today for physical exam/transfer of care from Dr Kapadia. PHQ-9 positive. Patient does report at times she does feel like she would be better off not here. Patient denies suicidal ideations at this time or plan. Patient states she does have crisis hotline number. Patient currently follows with psychiatrist Count includes the [facility] and states she does have establish care with counselor. Patient states she does feel like her current psychiatry medications are working. Patient advised to follow-up with her psychiatrist regarding this. obgyn: [facility], Pap smear this year. eye exam: Recommended Declined flu shot. Declined lab work, states she recently got at her psychiatrist's office and everything was normal. [facility] Medical History Bloating Syncope, near Surgical History No pertinent past surgical history Family History (Updated 03/08/23 @ 13:44 by TOMMIE Camejo) Unknown No family history of colorectal cancer Mother Multiple sclerosis Father Hypercholesteremia Other Mental health disorder Social History (Updated 03/08/23 @ 13:45 by TOMMIE Camejo) Household Members Other:: family Housing: Apartment Are you a primary skin care instructor to a significant other at home: No Do you presently have visiting nurse or other home services: No Alcohol intake: current Alcohol intake frequency: a few times a month Patient Tobacco Use Status: Current someday Tobacco user Tobacco use type: Cigarette Cigarettes Per Day: 2 e-Cigarette/Vaping Use: Never Used Second Hand Smoke Exposure: No Substance Use Type: Marijuana service: No Current occupational status: employed Current occupational exposures/hazards: No Cognitive needs: No Hearing needs: No Vision needs: No Questionnaire PHQ-9 Over the last 2 weeks, how often have you been bothered by any of the following problems? 1. Little interest or pleasure in doing things: nearly every day 2. Feeling down, depressed, or hopeless: nearly every day 3. Trouble falling or staying asleep, or sleeping too much: not at all 4. Feeling tired or having little energy: nearly every day 5. Poor appetite or overeating: not at all 6. Feeling bad about yourself - or that you are a failure or have let yourself or your family down: nearly every day 7. Trouble concentrating on things, such as reading the newspaper or watching television: more than half the days 8. Moving or speaking so slowly that other people could have noticed. Or the opposite - being so fidgety or restless that you have been moving around a lot more than usual: not at all 9. Thoughts that you would be better off or of hurting yourself in some way: more than half the days Total score: 16 Depression Screening Interpretation: Positive (Follows with [facility]) Depression Screening Follow-up: In treatment Depression Screening Done: Yes Source: Developed by Drs. Perry Major, Denise Diego, Jorge Garcia and colleagues, with an educational tricia from [employer]. Thrive Questionnaire Date Thrive assessed: 03/08/23 I am a: Patient What is your living situation today?: I have a steady place to live Within the past 12 months, did the food you bought not last and you didn't have the money to get more?: Never true Within the past 12 months, did you worry whether your food would run out before you got money to buy more?: Never true Do you have trouble paying for medicines?: No Do you have trouble getting transportation to medical appointments?: No Do you have trouble paying your heating and electricity bill?: No Do you have trouble taking care of your child, family member or friend?: No Do you have trouble with day-to-day activities such as bathing, preparing meals, shopping, managing finances, etc.?: No Are you currently unemployed and looking for a job?: No Are you interested in more education?: No Please select the resources that you would like help with: None Currently or been in a relationship where the following occur: no concerns reported AUDIT C Alcohol Use Questionnaire (AUDIT-C) 1. How often do you have a drink containing alcohol?: Monthly or less 2. How many drinks containing alcohol do you have on a typical day when you are drinking?: 1 or 2 3. How often do you have six or more drinks on one occasion?: Never Total Score: 1 ANAIS-7 AMB Questionnaire ANAIS-7 Date ANAIS - 7 assessed: 03/08/23 Feeling nervous, anxious, or on edge: 3 = Nearly every day Not being able to stop or control worryin = Several days Worrying too much about different things: 3 = Nearly every day Trouble relaxin = Nearly every day Being so restless that it is hard to sit still: 0 = Not at all Becoming easily annoyed or irritable: 3 = Nearly every day Feeling afraid as if something awful might happen: 3 = Nearly every day Total ANAIS-7 score (0-4 normal; 5-9 mild; 10-14 moderate; 15-21 severe): 16 Source: Developed by Drs. Perry Major, Denise Diego, Jorge Garcia and colleagues, with an educational tricia from [employer]. ANAIS-7 Assessment Billing ANAIS-7 Assessment Tool: ANAIS-7 Assessment 74459 Review of Systems Const Denies chills, Denies fatigue, Denies fever(s) and Denies poor appetite Eyes Denies no additional complaints ENT Reports Normal hearing present Card Denies chest pain, Denies syncope, Denies rapid heart rate and Denies dyspnea Resp Denies cough and Denies dyspnea GI Denies change in stool character, Denies constipation, Denies diarrhea, Denies nausea and Denies vomiting Denies urinary frequency, Denies dysuria and Denies urinary urgency Neuro Reports Normal hearing present, Denies confusion and Denies syncope Psych Denies confusion Endo Denies fatigue Physical exam (Primary Care) Vital Signs: Last Vital Signs Pulse 89 03/08/23 13:26 BP 110/60 03/08/23 13:26 Pulse Ox 97 03/08/23 13:26 Oxygen Delivery Method Room Air 03/08/23 13:26 BMI result Body Mass Index 23.2 Tobacco/Smoking Status: Tobacco use Status Tobacco use date assessed 03/08/23 03/08/23 13:36 Patient Tobacco Use Status Current someday Tobacco 03/08/23 13:36 Tobacco use type Cigarette 03/08/23 13:36 e-Cigarette/Vaping Use Never Used 03/08/23 13:36 PHQ-9: PHQ-9 Score PHQ-9: Total score 16 03/08/23 13:36 Depression Screening Interpretation: Positive (Follows with [facility]) Depression Screening Follow-up: In treatment Thrive Assessment: Date of Thrive Assessment Date Thrive assessed 03/08/23 03/08/23 13:36 Currently or been in a relationship where the following occur: no concerns reported Const General: No confusion Orientation/consciousness: No confusion HENMT Head: Yes normocephalic and Yes atraumatic Ears: external ears normal and TM's normal bilaterally General nose exam: Normal external nose present and Normal nasal mucous membranes and turbinates present Face and sinus: Yes normal facial exam and Yes sinuses nontender Mouth: moist mucous membranes Throat: Yes tonsils normal Eyes Conjunctivae: conjunctivae normal Sclerae: sclerae normal Pupils: Equal, round and reactive pupils present and Pupils normal by confrontation EOM: EOMs intact bilaterally Direct Ophthalmoscopy: normal light reflex Neck Neck: Yes no lymphadenopathy and Yes supple Thyroid: Thyroid normal Chest Chest palpation & inspection: normal inspection of the chest Resp Effort & Inspection: normal respiratory effort Auscultation: clear to auscultation bilaterally, no crackles, no rhonchi and no wheezes Cardio Rate: regular rate Rhythm: regular rhythm Peripheral pulses: radial pulses present and dorsalis pedis present GI Inspection: Yes normal to inspection Palpation (GI): Soft to palpation, nontender and No hepatosplenomegaly present Auscultation: normoactive bowel sounds Skin General skin exam: no rashes or lesions noted Neuro General: No confusion Cranial nerves: Yes Equal, round and reactive pupils present and Yes Normal hearing present Cognition (Neuro): normal cognition Gait exam (Neuro): Normal gait present Motor exam (neuro): 5/5 motor strength present throughout Deep tendon reflexes (DTR's): Right brachioradialis reflex intensity grade: 2+, Left brachioradialis reflex intensity grade: 2+, Right patellar reflex intensity grade: 2+ and Left patellar reflex intensity grade: 2+ Extrem General: No edema Office Procedures Flu Questionnaire Does the patient have a severe egg allergy?: No Immunizations flu vacc [id number] 6mos up(PF) 60 mcg(15 mcgx4)/0.5 mL IM syringe Performing Provider: TOMMIE Camejo [facility] Documented (not given) by: RENEE Reyez on 03/08/23 13:37 Reason Not Given: Patient Refused Assessment and Plan Assessment & Plan (1) Depression: Code(s): F32.A - Depression, unspecified Plan: Patient advised to continue to follow with psychiatry to establish care counselor. Continue on current medications. Patient denies SI/HI. Patient states she does have crisis hotline. 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 Patient verbalizes understanding. (2) Physical exam, annual: Code(s): Z00.00 - Encounter for general adult medical examination without abnormal findings Plan: Follow up in 1 year. Plan Follow up in 1 year or sooner if needed. Orders: Orders Influenza [id number] Immunization Today Z23 - Encounter for immunization Coding Level of Care Code Est Pt Prev Care 18-39y([id number]) Diagnoses Depression F32.A Physical exam, annual Z00.00 Additional Codes ANAIS-7 Assessment Billing - ANAIS-7 Assessment Tool: ANAIS-7 Assessment 81901 ([id number])
[2023-03-08 13:26] VITALS: BP 110/60; PULSE 89; O2SAT 97; BMI 23.2
== END 2023-03-08 14:23 | disposition home or self-care (01) ==
PROVIDERS: PCP Nurse Practitioner Family; Visit Provider Nurse Practitioner Family
DX: Z00.00 Encounter for general adult medical examination without abnormal findings (principal); F32.A Depression, unspecified; K58.9 Irritable bowel syndrome, unspecified; E73.9 Lactose intolerance, unspecified; Z23 Encounter for immunization
CPT/HCPCS: 96127; 99395

== ENCOUNTER 2024-02-03 11:58 | Emergency (ER) | payer OTHER, SELFPAY ==
--- NOTE | ~2024-02-03 | CT_ITS ---
EXAMINATION: CT HEAD WITHOUT CONTRAST CLINICAL INFORMATION: History injury, pain COMPARISON: None available. TECHNIQUE: Contiguous axial imaging was performed from the skull base to vertex without intravenous administration of contrast. This CT examination was performed using dose optimization techniques as appropriate, variously including the following: *Automated exposure control *Adjustment of mA and/or kV according to patient size (this includes techniques or standardized protocols for targeted exams where dose is matched to indication/reason for exam; i.e. extremities or head) *Use of iterative reconstruction technique DLP: 633 mGy-cm FINDINGS: No intra-axial or extra-axial hemorrhage. No acute territorial infarct. Ventricles and sulci appear normal. Preservation of henderson-white matter differentiation. No mass, mass effect, or midline shift. No fracture. The mastoid air cells and visualized paranasal sinuses are clear. CT/CT head/brain wo IV con IMPRESSION: No acute intracranial pathology. Electronically signed by: Ramakrishna Serrano MD 02/03/2024 01:04 PM EDT
--- NOTE | 2024-02-03 12:13 | ED_ITS ---
HPI - General Adult General Chief complaint: Head Injury Stated complaint: Head inj Time Seen by Provider: 02/03/24 14:01 Source: patient Mode of arrival: ambulatory Limitations: no limitations History of Present Illness ED Provider: Harlan MENDEZ HPI narrative: 24 yold female healthy with pmh hingles, IBS presents to ED for for scalp laceration. Patient states she was using the bathroom in [facility], she slept from the toilet she hit her head on the hook from the door. Patient states door was closed to the toilet due to bathroom being extremely small. Patient denies any loss of consciousness or any other complaints. Related Data Home Medications ?Medication ?Instructions ?Recorded ?Confirmed etonogestrel 0.12 mg-ethinyl 0 vag ring vaginal 02/04/20 03/08/23 estradiol 0.015 mg/24 hr vaginal ring aripiprazole 5 mg tablet 5 mg PO DAILY 03/08/23 03/08/23 escitalopram oxalate 5 mg tablet 5 mg PO DAILY 03/08/23 03/08/23 lamotrigine 25 mg tablet 50 mg PO DAILY 03/08/23 03/08/23 prazosin 2 mg capsule 2 mg PO BEDTIME 03/08/23 03/08/23 Allergies Allergy/AdvReac Type Severity Reaction Status Date / Time prazosin AdvReac Unknown heart Verified 02/03/24 12:16 palpitations sertraline AdvReac Unknown diarrhea Verified 02/03/24 12:16 Review of Systems 2 Review of Systems: scalp laceration Yes all other systems are reviewed and are negative [facility] Past Medical History Medical History Bloating Syncope, near Surgical History No pertinent past surgical history Family History Family History (Updated 03/08/23 @ 13:44 by TOMMIE Camejo) Unknown No family history of colorectal cancer Mother Multiple sclerosis Father Hypercholesteremia Other Mental health disorder Social History Social History (Updated 03/08/23 @ 13:45 by TOMMIE Camejo) Household Members Other:: family Housing: Apartment Are you a primary zoo caretaker to a significant other at home: No Do you presently have visiting nurse or other home services: No Alcohol intake: current Alcohol intake frequency: a few times a month Patient Tobacco Use Status: Current someday Tobacco user Tobacco use type: Cigarette Cigarettes Per Day: 2 e-Cigarette/Vaping Use: Never Used Second Hand Smoke Exposure: No Substance Use Type: Marijuana Advance Directives: No Advance Directives Information Provided: Yes Do you have a plan to hurt others: No Plan service: No Current occupational status: employed Current occupational exposures/hazards: No Cognitive needs: No Hearing needs: No Vision needs: No Physical Exam ED Vital Signs: Vital Signs - 24 hr 02/03/24 12:15 02/03/24 14:53 02/03/24 15:01 Temperature 97.0 F 97.2 F 97.2 F Pulse Rate 80 94 94 Respiratory Rate 18 14 14 Blood Pressure 125/75 125/80 125/80 Pulse Oximetry 98 99 99 Oxygen Delivery Method Room Air Room Air Room Air BMI result Body Mass Index 21.8 Const General: cooperative, healthy appearing, comfortable, no acute distress, well developed, alert, awake and Physically active Orientation/consciousness: patient oriented x3 HENMT Head: Yes normal to inspection, Yes No palpable skull fracture present, Yes normocephalic and Yes abrasion Head images: 2 1. Scalp laceration/abrasion. Dry blood scab. No need for wilton. Negative for crepitus. Negative for hematomas swelling. Ears: hearing grossly normal bilaterally, external ears normal, TM's normal bilaterally, TM normal on the right, TM normal on the left, EAC's normal, mastoids normal and no periauricular adenopathy Eyes General: appearance normal, both eyes and all related structures Neck Neck: Yes normal visual inspection, Yes full ROM, Yes no lymphadenopathy, Yes no meningeal signs, Yes trachea midline, Yes supple, No anterior neck swelling and No tender Chest Chest palpation & inspection: normal inspection of the chest and normal palpation of entire chest wall Resp Effort & Inspection: normal respiratory effort and able to speak in complete sentences Auscultation: clear to auscultation bilaterally Cardio Jugular venous distension: no JVD Heart sounds: S1 normal heart sound present and S2 normal heart sound present GI Inspection: Yes normal to inspection Palpation (GI): Soft to palpation, not firm, nontender, no guarding and not rigid General: No CVA tenderness and Yes no CVA tenderness Back/Spine/Pelvis Back: no CVA tenderness, No CVA tenderness and No back tenderness Skin General skin exam: no rashes or lesions noted, elasticity normal and turgor normal Neuro General: patient oriented x3, gait normal, tone normal, moves all extremities, Normal light touch and pain sensation, no meningeal signs, no focal motor deficits, CN's II-XI intact bilaterally and normal sensation to monofilament Extrem General: Yes normal to inspection, Yes full ROM and Yes capillary refill normal Psych Appearance: grossly normal, well kempt and not disheveled Course Course Course Narrative: RME performed by Jen Rowland PA-C. Patient is a 24 year old assigned female at presenting to the emergency department with a headache. Patient states yesterday she was in a bathroom stall and leaned forward, hitting her head on a hook. Patient states that she did not lose consciousness. Detailed physical exam and review of systems are deferred to the director of primary care. Imaging ordered. Patient placed back in the waiting room pending room availability and results. Medical Decision Making Medical Decision Making MDM Narrative: Radiating 24-year-old female presents to ED for scalp laceration caused by hitting head on click of bathroom door. Patient presently slight headache no other symptoms. Head CT scan normal. Neuro exam is intact. Whole-body evaluate negative for signs of concerning life-threatening injuries. Patient to be discharged. Patient explained worrisome signs informed to return to the ED immediately. Not suspecting cervical spine fracture skull fracture, brain bleed, or any other life-threatening etiologies. Differential Diagnosis Differential Diagnoses: The differential diagnosis associated with the presentation includes (Brain bleed, skull fracture) Admission/Observation Consideration of admission/observation: Escalation of care including admission/observation considered Independent Interpretation I performed an independent interpretation of an: CT Scan Radiology Impression Discussion of test interpretation with radiology: I have reviewed the radiologist's reading. Independent Historian Clinical information obtained from an independent historian. History obtained from or confirmed by: Other (Patient) External Record Review External record reviewed: Other (Prior visis) Discharge Plan Discharge Clinical Impression: Abrasion, Head injury Patient Disposition: Home, Self-Care Instructions: Head Injury (ED), Abrasion (ED) Additional Instructions: Recommend follow-up with your primary care provider. Return to the ED for any nausea, vomiting, dizziness, neck pain, severe headache, any other concerning symptoms. FINDINGS: No intra-axial or extra-axial hemorrhage. No acute territorial infarct. Ventricles and sulci appear normal. Preservation of henderson-white matter differentiation. No mass, mass effect, or midline shift. No fracture. The mastoid air cells and visualized paranasal sinuses are clear. CT/CT head/brain wo IV con IMPRESSION: No acute intracranial pathology. Electronically signed by: Ramakrishna Serrano MD 02/03/2024 01:04 PM EDT Prescriptions: No Action etonogestrel-ethinyl estradiol 0.12-0.015 mg/24 hr ring 0 vag ring vaginal escitalopram oxalate 5 mg tablet 5 mg PO DAILY prazosin 2 mg capsule 2 mg PO BEDTIME lamotrigine 25 mg tablet 50 mg PO DAILY aripiprazole 5 mg tablet 5 mg PO DAILY Stand Alone Forms: Work/School Release Interventions: ED Discharge Assessment Last Done: 02/03/24 15:01 Discharge Date/Time: 02/03/24 15:02 Print Language: Ugandan
[2024-02-03 12:15] VITALS: BP 125/75; PULSE 80; RESP 18; TEMP 36.1; O2SAT 98; BMI 21.8
[2024-02-03 14:53] VITALS: BP 125/80; PULSE 94; RESP 14; TEMP 36.2; O2SAT 99
[2024-02-03 15:01] VITALS: BP 125/80; PULSE 94; RESP 14; TEMP 36.2; O2SAT 99
== END 2024-02-03 15:02 | disposition home or self-care (01) ==
PROVIDERS: Emergency Provider Emergency Medicine; PCP Nurse Practitioner Family
DX: S00.01XA Abrasion of scalp, initial encounter (principal); R51.9 Headache, unspecified; F17.210 Nicotine dependence, cigarettes, uncomplicated; W26.9XXA Contact with unspecified sharp object(s), initial encounter; Y93.89 Activity, other specified; Y92.511 Restaurant or cafe as the place of occurrence of the external cause; Y99.8 Other external cause status; Z79.899 Other long term (current) drug therapy
CPT/HCPCS: 70450; 99284

== ENCOUNTER 2024-09-03 13:44 | Outpatient (AMB) | payer OTHER, SELFPAY ==
--- NOTE | 2024-09-03 14:02 | MHC.PC.OV ---
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: Present Accompanied by: children Allergies prazosin Adverse Reaction (Unknown, Verified 09/03/24 14:24) heart palpitations sertraline Adverse Reaction (Unknown, Verified 09/03/24 14:24) diarrhea Medication List - Last Reconciled 09/03/24 by Elizabeth Thomas PA-C clonidine HCl 0.05 mg PO BEDTIME etonogestrel-ethinyl estradiol 0.12-0.015 mg/24 hr 0 vag rings vaginal oxcarbazepine 600 mg PO BID Tobacco use date assessed: 09/03/24 Dental Screening Dental Screen Date: 09/03/24 Did you have a dental visit in the last 12 months?: No Did you have a dental problem in the last 6 months where you did not have access to dental care?: No Was dental information given to patient?: No [facility] H[facility] Details 24 year old female with past history of depression and IBS last seen 2022 by [employer] coming in for ARMANI.? Presenting with episodes of syncope. Episodes began last year and occur with heat and physical strain. She experiences accompanying lightheadedness and near-syncope episodes. A history of depression includes marked weight loss, low appetite, and lack of daytime nutritional intake, indicating energy deficits possibly leading to syncope. Anxiety episodes include tachycardia and are exacerbated by environmental noise. Nighttime sweats with occasional smoking associated with nicotine withdrawal. Ongoing irritable bowel syndrome, previously evaluated with a colonoscopy and endoscopy, has mixed presentations of diarrhea and constipation. Recurrent episodes of sharp upper body pain may suggest muscular or gas-related issues instead of cardiac or pulmonary conditions. She follows with [facility] every 2 weeks for her counseling and does also follow with the med provider for psych. [facility] Medical History Bloating Syncope, near Surgical History No pertinent past surgical history Family History Unknown No family history of colorectal cancer Mother Multiple sclerosis Father Hypercholesteremia Other Mental health disorder Social History Household Members Other:: family Housing: Apartment Are you a primary nurse healthcare manager to a significant other at home: No Do you presently have visiting nurse or other home services: No Alcohol intake: current Alcohol intake frequency: a few times a month Patient Tobacco Use Status: Current everyday Tobacco user Tobacco use type: Cigarette Cigarette Packs Per Day: 0.5 Cigarettes Per Day: 10 e-Cigarette/Vaping Use: Never Used Second Hand Smoke Exposure: Yes Substance Use Type: Marijuana service: No Current occupational status: employed Current occupational exposures/hazards: No Cognitive needs: No Hearing needs: No Vision needs: No Questionnaire PHQ-9 Over the last 2 weeks, how often have you been bothered by any of the following problems? 1. Little interest or pleasure in doing things: more than half the days 2. Feeling down, depressed, or hopeless: more than half the days 3. Trouble falling or staying asleep, or sleeping too much: more than half the days 4. Feeling tired or having little energy: more than half the days 5. Poor appetite or overeating: more than half the days 6. Feeling bad about yourself - or that you are a failure or have let yourself or your family down: more than half the days 7. Trouble concentrating on things, such as reading the newspaper or watching television: more than half the days 8. Moving or speaking so slowly that other people could have noticed. Or the opposite - being so fidgety or restless that you have been moving around a lot more than usual: more than half the days 9. Thoughts that you would be better off or of hurting yourself in some way: not at all Total score: 16 Depression Screening Interpretation: Positive Depression Screening Follow-up: Existing condition and In treatment Depression Screening Done: Yes Source: Developed by Drs. Perry Major, Denise Diego, Jorge Garcia and colleagues, with an educational tricia from [email or web address]. Thrive Questionnaire Date Thrive assessed: 09/03/24 I am a: Patient What is your living situation today?: I have a steady place to live Within the past 12 months, did the food you bought not last and you didn't have the money to get more?: Often true Within the past 12 months, did you worry whether your food would run out before you got money to buy more?: I choose not to answer this question Do you have trouble paying for medicines?: No Do you have trouble getting transportation to medical appointments?: No Do you have trouble paying your heating and electricity bill?: No Do you have trouble taking care of your child, family member or friend?: I choose not to answer this question Do you have trouble with day-to-day activities such as bathing, preparing meals, shopping, managing finances, etc.?: No Are you currently unemployed and looking for a job?: No Are you interested in more education?: No Please select the resources that you would like help with: None Currently or been in a relationship where the following occur: I choose not to answer THRIVE Score: 1 AUDIT C Alcohol Use Questionnaire (AUDIT-C) 1. How often do you have a drink containing alcohol?: Never Total Score: 0 ANAIS-7 AMB Questionnaire ANAIS-7 Date ANAIS - 7 assessed: 09/03/24 Feeling nervous, anxious, or on edge: 2 = More than half the days Not being able to stop or control worryin = More than half the days Worrying too much about different things: 2 = More than half the days Trouble relaxin = More than half the days Being so restless that it is hard to sit still: 2 = More than half the days Becoming easily annoyed or irritable: 2 = More than half the days Feeling afraid as if something awful might happen: 2 = More than half the days Total ANAIS-7 score (0-4 normal; 5-9 mild; 10-14 moderate; 15-21 severe): 14 Source: Developed by Drs. Perry Major, Denise Diego, Jorge Garcia and colleagues, with an educational tricia from [email or web address]. ANAIS-7 Assessment Billing ANAIS-7 Assessment Tool: ANAIS-7 Assessment 05792 Review of Systems Const Denies body aches, Denies chills, Denies fever(s), Denies headache(s) and Denies poor appetite Eyes Reports no additional complaints ENT Denies dysphagia, Denies dizziness, Denies headache(s) and Denies odynophagia Card Details: Last presyncopal episode several months ago. She had 2 episodes last year Denies chest pain, Denies syncope, Denies edema, Denies irregular heart rhythm, Denies lightheadedness and Denies dyspnea Resp Denies cough and Denies dyspnea GI Reports abdominal pain, Reports constipation, Denies dysphagia, Reports diarrhea, Denies nausea, Denies odynophagia and Denies vomiting Reports no additional complaints Musc Reports no additional complaints and Denies abnormal gait Skin/Breast Reports system reviewed and no additional complaints, except as documented Neuro Denies abnormal gait, Denies dizziness, Denies syncope and Denies headache(s) Psych Reports no additional complaints Physical exam (Primary Care) Vital Signs: Last Vital Signs Temp 97.3 F 09/03/24 14:03 Pulse 69 09/03/24 14:03 BP 120/72 09/03/24 14:03 Pulse Ox 97 09/03/24 14:03 Oxygen Delivery Method Room Air 09/03/24 14:03 BMI result Body Mass Index 20.1 Tobacco/Smoking Status: Tobacco use Status Tobacco use date assessed 09/03/24 09/03/24 14:11 Patient Tobacco Use Status Current everyday Tobacco 09/03/24 14:11 Tobacco use type Cigarette 09/03/24 14:11 e-Cigarette/Vaping Use Never Used 09/03/24 14:11 PHQ-9: PHQ-9 Score PHQ-9: Total score 16 09/03/24 14:11 Depression Screening Interpretation: Positive Depression Screening Follow-up: Existing condition and In treatment Thrive Assessment: Date of Thrive Assessment Date Thrive assessed 09/03/24 09/03/24 14:11 Currently or been in a relationship where the following occur: I choose not to answer Const General: cooperative, healthy appearing, comfortable and no acute distress Orientation/consciousness: patient oriented x3 HENMT Head: Yes normocephalic Ears: hearing grossly normal bilaterally General nose exam: Normal external nose present Eyes General: appearance normal, both eyes and all related structures Conjunctivae: conjunctivae normal Neck Neck: Yes full ROM and Yes no lymphadenopathy Chest Other: No tenderness to palpation over bilateral ribs Resp Effort & Inspection: normal respiratory effort Auscultation: clear to auscultation bilaterally, no crackles, no rales, no rhonchi and no wheezes Cardio Rate: regular rate Rhythm: regular rhythm GI Palpation (GI): Soft to palpation, not firm, nontender, no guarding, not rigid, no pulsatile masses and No Rebound tenderness present Skin General skin exam: no rashes or lesions noted Neuro General: patient oriented x3 Gait exam (Neuro): Normal gait present Extrem General: Yes normal to inspection, Yes full ROM and No edema Psych Affect: normal affect Attitude: cooperative Insight: Good insight present (Psych) Judgement: Good judgement present (Psych) Coding Level of Care Code Est Pt Level 4 (13302) Diagnoses Anxiety F41.9 Depression F32.A IBS (irritable bowel syndrome) K58.9 Tobacco use disorder F17.200 Near syncope R55 Pleuritic chest pain R07.81 Additional Codes ANAIS-7 Assessment Billing - ANAIS-7 Assessment Tool: ANAIS-7 Assessment 99016 ([id number]) Assessment & Plan Assessment & Plan (1) Anxiety: Comment: [facility] every other week for counseling Code(s): F41.9 - Anxiety disorder, unspecified Category: Medical Plan: patient currently following with [facility] for counseling and for medical management. She is not on any antidepressants and is interested in trying 1. Plan to start on Remeron 7.5 mg for appetite stimulant, sleep aid as well as anxiety and depression management. Discussed with patient to follow the guidance of her psychiatrist in continuing this medication. (2) Depression: Code(s): F32.A - Depression, unspecified Category: Medical Plan: See above (3) IBS (irritable bowel syndrome): Comment: Dicyclomine 10 milligrams may increase to t.i.d. Code(s): K58.9 - Irritable bowel syndrome, unspecified Category: Medical Plan: Discussed low FODMAP diet. Also recommend adding fiber supplementation to diet. Can consider referral to GI if symptoms do not improve. (4) Tobacco use disorder: Code(s): F17.200 - Nicotine dependence, unspecified, uncomplicated Category: Medical Plan: Smoking cigarettes and the use of tobacco can be harmful. We discussed the importance of stopping and options to aid in smoking cessation. Nicotine replacement therapy ordered today (5) Near syncope: Code(s): R55 - Syncope and collapse Category: Medical Plan: Patient having history of near-syncope has been worked up by previous providers. EKG ordered today as well as blood work in reviewing her more recent presyncopal episodes likely related to hypoglycemia or dehydration. Referral was placed for Cardiology as well for further evaluation. (6) Pleuritic chest pain: Code(s): R07.81 - Pleurodynia Category: Medical Plan: patient having pain with deep breath on the left side on occasion but typically self resolves after several sec. She will occasionally have pain with a deep breath that resolves almost instantaneously. This has been ongoing for several years has not noticed increasing intensity or duration. Plan to obtain x-ray with rib series for further evaluation. Likely muscular in nature but plan to rule out other etiology. Plan Mirtazapine will be introduced to manage depression and stimulate appetite. The patient is advised on nighttime nicotine patch use. Dietary improvements with increased fiber intake are recommended to address IBS symptoms. Cardiological evaluation and routine bloodwork will be conducted to investigate syncope. Follow-up in two months is planned. This note was constructed using voice recognition software. While every effort has been made to ensure accuracy and data acquisition technician, still areas may have been included sometimes these areas may affect the content or meeting of the given symptoms. Total time spent caring for the patient today was 30 minutes. This includes time spent before the visit reviewing the chart, time spent during the visit, and time spent after the visit and documentation. Patient was informed and verbally consented to the use of an ambient scribe for clinic note documentation during this visit. Orders: Orders Comprehensive Met. Panel Today Z00.00 - Encounter for general adult medical examination without abnormal findings Complete Blood Count Auto Diff Today Z00.00 - Encounter for general adult medical examination without abnormal findings Vitamin B12 and Folate Today Z00.00 - Encounter for general adult medical examination without abnormal findings Vitamin D 25-OH Total Today Z00.00 - Encounter for general adult medical examination without abnormal findings ECG 12 lead EKG Today R55 - Syncope and collapse Free T4 (Free Thyroxine) Today Z00.00 - Encounter for general adult medical examination without abnormal findings TSH reflex Free T4 Today Z00.00 - Encounter for general adult medical examination without abnormal findings XR ribs BI min 4V w CXR1V Today R07.81 - Pleurodynia Referrals Cardiology Referral R55 - Syncope and collapse Medications: New nicotine 1 patch transdermal DAILY 28 ea 0RF psyllium husk (Metamucil) 0.4 grams PO BEDTIME 30 caps 0RF mirtazapine 7.5 mg PO BEDTIME 30 tabs 0RF
[2024-09-03 14:03] VITALS: BP 120/72; PULSE 69; TEMP 36.3; O2SAT 97; BMI 20.1
--- OUTSIDE RECORDS SUMMARY | 2024-09-03 15:02 | XMS_ITS | Clinical Summary ---
Author Organization [facility] [address] [place] [address] [place] [phone] Phone Care Team Providers Care Superior Court Clerk Name Role Phone Mary Ellen Kapadia MD Primary Care Provider Allergies No known active allergies Medications sertraline (ZOLOFT) 25 mg tablet Take one tablet by mouth starting one week before the menstrual period stop day 3 of menstrual period. 3 Active etonogestreL-et hinyl estradioL (NUVARING) 0.12-0.015 mg/24 hr vaginal ring Insert 1 each into the vagina every 28 (twenty-eight) days. Insert vaginally and leave in place for 3 consecutive weeks, then remove for 1 week. 1 each 3 5 06/09/19 26 Active Active Problems Problem Noted Date Diagnosed Date Low vitamin D level 07/03/2022 Overview (03/30/2024): 07/03/2022 supplement started, will repeat vitamin d level in 3 months Depression 12/01/2020 Overview (03/30/2024): Last Assessment & Plan: Continue meds. Given resoruces for local therapist and also referral to . She was informed that she should hear back in 1-2 weeks with an appointment date. If not, she should call back to our office and inquire on getting this arranged. She voiced understanding and agreed. Resolved Problems Problem Noted Date Diagnosed Date Resolved Date Weight loss 12/01/2020 03/30/2024 Overview (03/30/2024): Last Assessment & Plan: Encouraged her to increase her caloric intake by eating when her kids eat. Also will check thyroid. Likely needs management of mental health to improve desire to eat. Encounters Date Type Department Care Team Description 06/09/2024 Telephone Obstetrics and Gynecology [address] [phone] Chio Raymundo CNM medication from Last 3 Months Immunizations Name Administration Dates Next Due PPD Test 03/28/2017 Tdap Tetanus diptheria acell ular pertussis (Boostrix; Adacel) 7yo and older 07/04/2018 Surgical History Surgery Date Site/Laterality Comments OTHER SURGICAL HISTORY PROCEDURE: DENIES PREVIOUS SURGERY Medical History Medical History Date Comments Patient denies medical problems DX:Patient denies medical problems Depression affecting pregnan cy, antepartum 06/03/2018 DX:Depression affecting preg monique, antepartum Family History Medical History Relation Name Comments No Known Problems Brother Hyperlipidemia Father Colon cancer Maternal Grandfather No Known Problems Maternal Grandmother Multiple sclerosis Mother Seizures Mother Blindness Paternal Grandfather No Known Problems Paternal Grandmother No Known Problems Sister Breast cancer Neg Hx Ovarian cancer Neg Hx Uterine cancer Neg Hx Relation Name Status Comments Brother Father Maternal Grandfather Maternal Grandmother Mother Paternal Grandfather Paternal Grandmother Sister Social History Tobacco Use Types Packs/Day Years Used Date Smoking Tobacco: Every Day Cigarettes Smokeless Tobacco: Never Alcohol Use Standard Drinks/Week Comments Yes 0 (1 standard drink = 0.6 oz pur e alcohol) Comments No Sex and Gender Information Value Date Recorded Sex Assigned at Not on file Legal Sex Female 4:31 AM EST Gender Identity Not on file Sexual Orientation Not on file Obstetrics History Para Term AB IAB SAB Ectopic Multiple Livin g Live Births 4 3 2 1 1 1 3 3 Date Outcome GA Total Labor Labor/2nd/3rd Weight Sex Type Anes PTL Silvia A1 A5 Name Clin SAB 2012 33w 1d 1559 g (55 oz) F Vag-S pont None Y Livin g Milady Delivery Location:[facility] Comments: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 2016 Term 37w 2d 3090 g (109 oz) M Vag-S pont Maria Fernanda kaufman N Connie Worrell meaghan Complications:None Delivery Location:[facility] 2018 Term Vag-S jewel renteria Last Filed Vital Signs Vital Sign Reading Time Taken Comments Blood Pressure 133/81 05/29/2024 1:39 PM EST Pulse 69 05/29/2024 1:39 PM EST Temperature - - Respiratory Rate - - Oxygen Saturation - - Inhaled Oxygen Concentration - - Weight 54.4 kg (120 lb) 05/29/2024 1:39 PM EST Height 160 cm (5' 3 ) 05/29/2024 1:39 PM EST Body Mass Index 21.26 05/29/2024 1:39 PM EST Plan of Treatment Health Maintenance Due Date Last Done Comments Hepatitis A Vaccines (2 of 2 - 2-dose series) 01/04/2013 07/04/2012 Pneumococcal Vaccine: Pediatrics (0 to 5 Years) and At-Risk Patients (6 to 64 Years) (1 of 2 - PCV) 2017 Cholesterol Screening (Lipid Panel) 04/08/2022 03/29/2017 Depression Screening 04/08/2022 Social Influencers of Health Screening 04/08/2022 COVID-19 Vaccine ( season) 2023 08/20/2021, 01/06/2021, 12/09/2020 Influenza Vaccine (Season Ended) 2024 04/09/2023, 05/02/2022 Cervical Cancer Screening: Pap Smear 06/29/2025 06/29/2022, 06/29/2022, 05/08/2019 DTaP,Tdap,and Td Vaccines (9 - Td or Tdap) 08/15/2028 08/15/2018, 07/04/2018, 01/25/2010, Additional history exists HIB Vaccines Completed 06/10/1999, 08/29, 1998, Additional history exists IPV Vaccines Completed 04/02/2002, 02/28, 1998, Additional history exists MMR Vaccines Completed 04/02/2002, 03/16/1999 Varicella Vaccines Completed 08/06/2008, 03/16/1999 Meningococcal ACWY Vaccine Aged Out 01/25/2010 N o longer eligible based on patient's age to complete this topic HPV Vaccines Completed 07/04/2012, 03/0 04/2011, 01/25/2010 Hepatitis B Vaccines Completed 01/29/2023, 12/29/2022, 1998, Additional history exists Gonorrhea/Chlamydia Screening Discontinued 05/29/2024, 06/29/2022 HIV Screening Completed 05/29/2024, 06/29/2022 Hepatitis C Screening Completed 05/29/2024, 023 Meningococcal B Vaccine Aged Out No l onger eligible based on patient's age to complete this topic RSV Immunization Patients Under 20 months Aged Out No longer eligible based on patient's age to complete this topic Procedures Procedure Name Priority Date/Time Associated Diagnosis Comments HEPATITIS C ANTIBODY Routine 05/29/2024 2:25 PM EST Screen for STD (sexually transmitted disease) HIV 1, 2 ANTIBODY, P24 ANTIGEN WITH REFLEX TO DIFFERENTIATION Routine 05/29/2024 2:25 PM EST Screen for STD (sexually transmitted disease) CHLAMYDIA TRACHOMATIS AND NEISSERIA GONORRHOEAE PCR Routine 05/29/2024 2:03 PM EST Screen for STD (sexually transmitted disease) PAP SMEAR Routine 06/29/2022 LIPID PANEL Routine 03/29/2017 from Last 3 Months or Most Recently Relevant to Health Maintenance Results * Hepatitis C antibody (05/29/2024 2:25 PM EST) Hepatitis C Antibody Negative Negative LAB CHEMISTRY METHOD 05/29/2024 5:36 PM EST [facility] Blood Venous blood specimen / Unknown Venipuncture / Unknown 05/29/2024 2:25 PM EST 05/29/2024 2:25 PM EST us Chio Raymundo CNM LAB BLOOD ORDERABLES Final Res ult [facility] [address] [place] [address], [place] [phone] * HIV 1,2 antibody, p24 antigen with reflex to differentiation (05/29/2024 2:25 PM EST) Pathologist [facility] HIV Combo AB/AG Negative Negative LAB CHEMISTRY METHOD 05/29/2024 5:37 PM EST [facility] Blood Venous blood specimen / Unknown Venipuncture / Unknown 05/29/2024 2:25 PM EST 05/29/2024 2:25 PM EST Narrative [facility] - 05/29/2024 5:37 PM EST This assay is a 4th generation assay allowing for earlier detection of HIV infection by detecting the presence of the HIV-1 p24 antigen as well as the traditional antibodies to HIV type 1 (including group O) and type 2. ??Use of a 4th generation assay is the current CDC recommendation for HIV screening. us Chio Raymundo CNM LAB BLOOD ORDERABLES Final Res ult [facility] [address] [place] [address], [place] [phone] * Chlamydia trachomatis and Neisseria gonorrhoeae molecular study (05/29/2024 2:03 PM EST) [facility] Neisseria gonorrhoeae PCR Negative Negative LAB MOLECULAR DIAGNOSTICS METHOD 05/30/2024 9:07 AM EST [facility] Chlamydia trachomatis PCR Negative Negative LAB MOLECULAR DIAGNOSTICS METHOD 05/30/2024 9:07 AM EST [facility] Swab Cervix uteri structure / Unknown Non-blood Collection / Unknown 05/29/2024 2:03 PM EST 05/29/2024 2:03 PM EST us Chio Raymundo CNM LAB MICROBIOLOGY - GENERAL ORD ERABLES Final Result [facility] [address] [place] [address], [place] [phone] * Pap smear (06/29/2022) 06/29/2022 Narrative HISTORICAL TESTING LAB RESULTING AGENCY - 07/10/2022 6:40 AM EDT [id number] THINPREP PAP, IMAGED: NEGATIVE FOR SQUAMOUS INTRAEPITHELIAL LESION AND MALIGNANCY . NELL GANDHI(ASCP) (CASE ELECTRONICALLY SIGNED 07 09 2022) ADEQUACY: SATISFACTORY ENDOCERVICAL/TRANSFORMATION ZONE COMPONENT PRESENT. SOURCE: THINPREP PAP HPV IF ASCUS, CERVICAL, IMAGED CLINICAL INFORMATION: HPV IF DIAGNOSIS OF ASCUS. PAP HX NEGATIVE. [Z01.419] Eva Adkins CNM LAB CYTOLOGY ORDERABLES Final R esult HISTORICAL TESTING LAB RESULTING AGENCY * Lipid panel (03/29/2017) LDL/HDL Ratio 2 0 - 4 Triglycerides 49 0 - 150 mg/dL Cholesterol 136 0 - 200 mg/dL HDL 61 >=40 mg/dL LDL Cholesterol 65 0 - 100 mg/dL Blood Venous blood specimen / Unknown Historical Provider LAB BLOOD ORDERABLES Lina l Result from Last 3 Months or Most Recently Relevant to Health Maintenance Insurance [facility] [place] [phone] Clerk Relationship Specialty Start Date End Date Mary Ellen Kapadia MD [address] [facility] [place] [address] PCP - General Internal Medicine 12/01/20
== END 2024-09-03 14:52 | disposition home or self-care (01) ==
LOC: HO.HMCH 13:45
DX: F41.9 Anxiety disorder, unspecified (principal); F32.A Depression, unspecified; K58.9 Irritable bowel syndrome, unspecified; F17.200 Nicotine dependence, unspecified, uncomplicated; R55 Syncope and collapse; R07.81 Pleurodynia

== ENCOUNTER → 2024-09-03 13:44 | Outpatient (BNVA) | payer OTHER, SELFPAY | PROVIDERS: PCP Nurse Practitioner Family | DX: F41.9 Anxiety disorder, unspecified (principal); F32.A Depression, unspecified; K58.9 Irritable bowel syndrome, unspecified; R55 Syncope and collapse; R07.81 Pleurodynia; F17.210 Nicotine dependence, cigarettes, uncomplicated | CPT/HCPCS: 96127; 99212 ==

== ENCOUNTER 2024-09-18 11:28 | Outpatient (REF) | payer OTHER, SELFPAY ==
--- NOTE | ~2024-09-18 | XR_ITS ---
CLINICAL HISTORY: R07.81 - Pleurodynia --- Additional Notes or Special Instructions: chronic and inte rmittent 3 view, chest and bilateral ribs Comparison: None Findings: Bones intact. No dislocations. The visualized lungs are normal. IMPRESSION: 1. No acute fractures. This document has been electronically signed by: Chandu Mooney MD on 09/19/2024 13:45:51
[2024-09-18 11:42] LABS: MANUAL DIFF FLAG NO
[2024-09-18 11:52] LABS: Basophils Percent Auto 0.4 % (0-2); Eosinophils Absolute Auto 0.1 X10*3/uL (0.0-0.4); Eosinophils Percent Auto 1.7 % (0-4); Hematocrit 38.3 % (37.0-47.0); Hemoglobin 12.8 g/dl (12.0-16.0); Imm Gran Abs Auto 0.02 X10*3/uL (0.00-0.03); Imm Gran Pct Auto 0.2 % (0.0-0.4); Lymphocytes Absolute Auto 1.4 X10*3/uL (1.2-4.9); Lymphocytes Percent Auto 16.9 % (20-40); Mean Corpuscular HGB Conc 33.4 g/dl (31.0-35.0); Mean Corpuscular Hemoglobin 31.9 pg (27.0-33.0); Mean Corpuscular Volume 95.5 fL (80.0-98.0); Mean Platelet Volume 11.4 fL (9.4-12.3); Monocytes Absolute Auto 0.6 X10*3/uL (0.1-1.2); Monocytes Percent Auto 6.9 % (2-11); Neutrophils Absolute Auto 6.1 x10*3/uL (2.0-8.3); Neutrophils Percent Auto 73.9 % (45-73); Platelet Count 179 X10*3/uL (160-400); Red Blood Count 4.01 X10*6/uL (4.20-5.50); Red Cell Distribution Width 12.8 % (11.0-16.0); White Blood Count 8.3 X10*3/uL (4.8-10.8)
--- NOTE | 2024-09-18 11:57 | ECG_ITS ---
Test Reason : SYNCOPE Blood Pressure : */* mmHG Vent. Rate : 82 BPM Atrial Rate : 82 BPM P-R Int : 114 ms QRS Dur : 90 ms QT Int : 376 ms P-R-T Axes : 77 73 9 degrees QTcB Int : 439 ms Normal sinus rhythm Possible Left atrial enlargement Nonspecific ST abnormality Abnormal ECG When compared with ECG of 27-Oct-2020 14:58, No significant change was found Referred By: Elizabeth Thomas Electronically Signed By: Baljeet Montaño
--- OUTSIDE RECORDS SUMMARY | 2024-09-18 12:05 | XMS_ITS | Clinical Summary ---
Author Organization [facility] [address] [place] [address] [place] [phone] Phone Care Team Providers Care Special Events Coordinator Name Role Phone Mary Ellen Kapadia MD Primary Care Provider [phone] Allergies No known active allergies Medications sertraline [...] mental health to improve desire to eat. 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 2016 Term 37w 2d 3090 g (109 oz) M Vag-S pont Epidur al N Livin g Alexan meaghan Complications:None [place] [place] Term Vag-S pont Livin g Last Filed Vital Signs Vital Sign Reading [...] Hepatitis C antibody (05/29/2024 2:25 PM EST) Pathologist [facility] Hepatitis C Antibody Negative Negative LAB CHEMISTRY METHOD 05/29/2024 5:36 PM EST [facility] Blood Venous blood specimen / Unknown Venipuncture / Unknown 05/29/2024 2:25 PM EST 05/29/2024 2:25 PM EST us Chio Raymundo CNM LAB BLOOD ORDERABLES Final Res ult [facility] [address] [place] [address], [place] [phone] * HIV 1,2 antibody, p24 antigen with reflex to differentiation (05/29/2024 2:25 PM EST) HIV Combo AB/AG Negative Negative LAB CHEMISTRY METHOD 05/29/2024 5:37 PM EST [facility] Blood Venous blood specimen / Unknown Venipuncture / Unknown 05/29/2024 2:25 PM EST 05/29/2024 2:25 PM EST Narrative [facility] - 05/29/2024 5:37 PM EST This [...] CNM LAB BLOOD ORDERABLES Final Res ult [facility] [address] [place] [address], [place] [phone] * Chlamydia trachomatis and Neisseria gonorrhoeae molecular study (05/29/2024 2:03 PM EST) Neisseria gonorrhoeae PCR Negative Negative LAB MOLECULAR DIAGNOSTICS METHOD 05/30/2024 9:07 AM EST [facility] Chlamydia trachomatis PCR Negative Negative LAB MOLECULAR DIAGNOSTICS METHOD 05/30/2024 9:07 AM [facility] Swab Cervix uteri structure / Unknown Non-blood Collection / Unknown 05/29/2024 2:03 PM EST 05/29/2024 2:03 PM EST us Chio Raymundo CNM LAB MICROBIOLOGY - GENERAL ORD ERABLES Final Result [facility] [address] [place] [address], [place] [phone] * Pap smear (06/29/2022) 06/29/2022 Narrative HISTORICAL TESTING LAB RESULTING AGENCY - 07/10/2022 6:40 AM EDT [id number] THINPREP PAP, IMAGED: NEGATIVE FOR SQUAMOUS INTRAEPITHELIAL LESION AND MALIGNANCY . PILAR DAWN , NELL(ASCP) (CASE ELECTRONICALLY SIGNED 07 09 2022) ADEQUACY: [...] Most Recently Relevant to Health Maintenance Insurance [facility] [employer] Care Teams Special Events Coordinator Relationship Specialty Start Date End Date Mary Ellen Kapadia MD [address] [place] [phone] PCP - General Internal Medicine 12/01/20
[2024-09-18 13:00] LABS: Folate 10.6 ng/mL (> or = 4.0); Vitamin B12 622 pg/mL (200-900)
[2024-09-18 13:21] LABS: Alanine Aminotransferase 17 U/L (0-31); Albumin Level 4.5 g/dL (3.5-5.0); Alkaline Phosphatase 61 U/L (39-117); Anion Gap 11 (12-20); Aspartate Amino Transferase 22 U/L (5-31); Bilirubin Total 0.4 mg/dL (0.0-1.0); Blood Urea Nitrogen 9 mg/dL (9-16); Calcium 8.9 mg/dL (8.4-10.2); Carbon Dioxide 26 mmol/L (22-29); Chloride 109 mmol/L (96-108); Estimated Glomerular Filt Rate > 60; Free T4 (Free Thyroxine) 0.76 ng/dL (0.71-1.85); Glucose Random 103 mg/dL (60-115); Sodium 142 mmol/L (135-145); TSH reflex Free T4 0.59 uIU/mL (0.32-4.0); Total Protein 7.1 g/dL (6.5-8.0); Vitamin D 25-OH Total 26.1 ng/mL (>30)
== END 2024-09-18 11:29 | disposition home or self-care (01) ==
LOC: HO.XRAY 11:28
DX: R07.81 Pleurodynia (principal); Z00.00 Encounter for general adult medical examination without abnormal findings; R55 Syncope and collapse
CPT/HCPCS: 36415; 71111; 80053; 82306; 82607; 82746; 84439; 84443; 85025; 93005

== ENCOUNTER → 2024-09-18 11:41 | Outpatient (BNV) | payer OTHER, SELFPAY | PROVIDERS: Visit Provider Specialist | DX: R07.81 Pleurodynia (principal) | CPT/HCPCS: 71111 ==

== ENCOUNTER → 2024-09-18 11:57 | Outpatient (BNV) | payer OTHER, SELFPAY | PROVIDERS: Visit Provider Internal Medicine Cardiovascular Disease | DX: R94.31 Abnormal electrocardiogram [ECG] [EKG] (principal); R55 Syncope and collapse | CPT/HCPCS: 93010 ==

== ENCOUNTER 2024-12-03 10:49 | Outpatient (AMB) | payer OTHER, SELFPAY ==
--- NOTE | 2024-12-03 11:00 | MHC.PC.OV ---
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: No Accompanied by: Self / Same As Patient Allergies prazosin Adverse Reaction (Unknown, Verified 12/03/24 11:10) heart palpitations sertraline Adverse Reaction (Unknown, Verified 12/03/24 11:10) diarrhea Medication List - Last Reconciled 12/03/24 by Elizabeth Thomas PA-C clonidine HCl 0.05 mg PO BEDTIME etonogestrel-ethinyl estradiol 0.12-0.015 mg/24 hr 0 vag rings vaginal mirtazapine 7.5 mg PO BEDTIME nicotine 1 patch transdermal DAILY oxcarbazepine 600 mg PO BID psyllium husk (Metamucil) 0.4 grams PO BEDTIME Tobacco use date assessed: 12/03/24 Dental Screening Dental Screen Date: 12/03/24 Did you have a dental visit in the last 12 months?: No Did you have a dental problem in the last 6 months where you did not have access to dental care?: No Was dental information given to patient?: No HPI f/u blood work and depression HPI Details 24-year-old female with past medical history of IBS and depression last seen 08/2024 coming in for follow up. She is currently following with [facility] for counseling and medical management of her anxiety and depression but was recently started on mirtazapine at her last visit. Her dicyclomine was increased to t.i.d. for IBS. Nicotine replacement therapy was ordered. Presenting with anxiety, depression, and irregular menstruation. Anxiety and depression have been ongoing issues, with the patient experiencing anxiety attacks and depressive episodes affecting daily activities such as work and personal care. The patient has been prescribed mirtazapine for anxiety and depression, but adherence has been inconsistent due to forgetfulness. Irregular menstruation was noted this month, with the period lasting only two days compared to the usual seven days. The patient has a history of using the NuvaRing, which was discontinued four months ago, potentially contributing to menstrual irregularities. The patient has been smoking since the age of 10 and is attempting to quit, having previously tried nicotine patches with adverse effects. [facility] Medical History Bloating Syncope, near Surgical History No pertinent past surgical history Family History Unknown No family history of colorectal cancer Mother Multiple sclerosis Father Hypercholesteremia Other Mental health disorder Social History Household Members Other:: family Housing: Apartment Are you a primary rn care manager to a significant other at home: No Do you presently have visiting nurse or other home services: No Alcohol intake: current Alcohol intake frequency: a few times a month Patient Tobacco Use Status: Current everyday Tobacco user Tobacco use type: Cigarette Cigarette Packs Per Day: 0.5 Cigarettes Per Day: 10 e-Cigarette/Vaping Use: Never Used Second Hand Smoke Exposure: Yes Substance Use Type: Marijuana service: No Current occupational status: employed Current occupational exposures/hazards: No Cognitive needs: No Hearing needs: No Vision needs: No Questionnaire Thrive Questionnaire Date Thrive assessed: 12/03/24 I am a: Patient What is your living situation today?: I have a steady place to live Within the past 12 months, did the food you bought not last and you didn't have the money to get more?: Often true Within the past 12 months, did you worry whether your food would run out before you got money to buy more?: I choose not to answer this question Do you have trouble paying for medicines?: No Do you have trouble getting transportation to medical appointments?: No Do you have trouble paying your heating and electricity bill?: No Do you have trouble taking care of your child, family member or friend?: I choose not to answer this question Do you have trouble with day-to-day activities such as bathing, preparing meals, shopping, managing finances, etc.?: No Are you currently unemployed and looking for a job?: No Are you interested in more education?: No Please select the resources that you would like help with: None Currently or been in a relationship where the following occur: I choose not to answer THRIVE Score: 1 ANAIS-7 AMB Questionnaire ANAIS-7 Date ANAIS - 7 assessed: 12/03/24 Source: Developed by Drs. Perry Major, Denise Diego, Jorge Garcia and colleagues, with an educational tricia from [employer]. Review of Systems Const Denies body aches, Denies chills, Denies fever(s), Denies headache(s) and Denies poor appetite Eyes Reports no additional complaints ENT Denies dizziness and Denies headache(s) Card Denies chest pain, Denies syncope, Denies edema, Denies irregular heart rhythm, Denies lightheadedness and Denies dyspnea Resp Denies dyspnea GI Denies nausea and Denies vomiting Reports no additional complaints Musc Reports no additional complaints and Denies abnormal gait Skin/Breast Reports system reviewed and no additional complaints, except as documented Neuro Denies abnormal gait, Denies dizziness, Denies syncope and Denies headache(s) Psych Reports no additional complaints Physical exam (Primary Care) Vital Signs: Last Vital Signs Pulse 65 12/03/24 11:02 BP 110/62 12/03/24 11:02 Pulse Ox 99 12/03/24 11:02 Oxygen Delivery Method Room Air 12/03/24 11:02 BMI result Body Mass Index 21.2 Tobacco/Smoking Status: Tobacco use Status Tobacco use date assessed 12/03/24 12/03/24 11:08 Patient Tobacco Use Status Current everyday Tobacco 12/03/24 11:08 Tobacco use type Cigarette 12/03/24 11:08 e-Cigarette/Vaping Use Never Used 12/03/24 11:08 Thrive Assessment: Date of Thrive Assessment Date Thrive assessed 12/03/24 12/03/24 11:08 Currently or been in a relationship where the following occur: I choose not to answer Const General: cooperative, healthy appearing, comfortable and no acute distress Orientation/consciousness: patient oriented x3 HENMT Head: Yes normocephalic Ears: hearing grossly normal bilaterally General nose exam: Normal external nose present Eyes General: appearance normal, both eyes and all related structures Conjunctivae: conjunctivae normal Neck Neck: Yes full ROM and Yes no lymphadenopathy Resp Effort & Inspection: normal respiratory effort Auscultation: clear to auscultation bilaterally, no crackles, no rales, no rhonchi and no wheezes Cardio Rate: regular rate Rhythm: regular rhythm Skin General skin exam: no rashes or lesions noted Neuro General: patient oriented x3 Gait exam (Neuro): Normal gait present Extrem General: Yes normal to inspection, Yes full ROM and No edema Psych Affect: normal affect Attitude: cooperative Insight: Good insight present (Psych) Judgement: Good judgement present (Psych) Coding Level of Care Code Est Pt Level 3 (57887) Diagnoses Anxiety F41.9 Depression F32.A IBS (irritable bowel syndrome) K58.9 Tobacco use disorder F17.200 Near syncope R55 Pleuritic chest pain R07.81 Vitamin D deficiency E55.9 Irregular periods N92.6 Assessment & Plan Assessment & Plan (1) Anxiety: Comment: [facility] every other week for counseling Code(s): F41.9 - Anxiety disorder, unspecified Category: Medical Plan: Patient currently following with [facility] for counseling and for medical management. She will continue with the Mirtazapine at this time and she will reschedule with [facility] as well. I did also send a prescription for hydroxyzine to be used as needed for anxiety attacks (2) Depression: Code(s): F32.A - Depression, unspecified Category: Medical Plan: See above (3) IBS (irritable bowel syndrome): Comment: Dicyclomine 10 milligrams may increase to t.i.d. Code(s): K58.9 - Irritable bowel syndrome, unspecified Category: Medical Plan: Discussed low FODMAP diet. Also recommend adding fiber supplementation to diet. (4) Tobacco use disorder: Code(s): F17.200 - Nicotine dependence, unspecified, uncomplicated Category: Medical Plan: Smoking cigarettes and the use of tobacco can be harmful. We discussed the importance of stopping and options to aid in smoking cessation. Nicotine replacement therapy ordered today. Did not like the patch plan to trial nicotine gum (5) Near syncope: Code(s): R55 - Syncope and collapse Category: Medical Plan: Patient having history of near-syncope has been worked up by previous providers. EKG was stable since last EKG. She had previously requested cardiology consult and has appointment coming up later this month. She states her symptoms have been improving with proper diet and hydration however she would like to see cardiology. (6) Pleuritic chest pain: Code(s): R07.81 - Pleurodynia Category: Medical Plan: Chest XR negative she will continue to monitor her symptoms at this time, no recent symptoms (7) Vitamin D deficiency: Code(s): E55.9 - Vitamin D deficiency, unspecified Category: Medical Plan: Vitamin D low on last blood work sent prescription and continue to monitor. (8) Irregular periods: Code(s): N92.6 - Irregular menstruation, unspecified Category: Medical Plan: Plan to order for blood test to check for . She is no longer using control and last use was about 4 months ago. Irregular menses may be due to hormone dysregulation as she previously had irregular periods prior to the initiation of the NuvaRing. Considered gynecology refer Plan The patient will continue with mirtazapine at bedtime for anxiety and depression, with emphasis on consistent daily use to improve efficacy. Hydroxyzine will be prescribed as needed for acute anxiety episodes, with caution advised regarding potential drowsiness. A cardiology referral has been made to evaluate episodes of lightheadedness and black spots in vision, although these symptoms have not occurred recently. The patient is advised to monitor menstrual cycles for any further irregularities and to consider a follow-up with gynecology if issues persist. Vitamin D supplementation has been prescribed to address deficiency, and the patient is encouraged to maintain adequate levels. The patient is encouraged to continue efforts to quit smoking, with nicotine gum suggested as an alternative to patches. This note was constructed using voice recognition software. While every effort has been made to ensure accuracy and musical instrument supervisor, still areas may have been included sometimes these areas may affect the content or meeting of the given symptoms. Total time spent caring for the patient today was 20 minutes. This includes time spent before the visit reviewing the chart, time spent during the visit, and time spent after the visit and documentation. Patient was informed and verbally consented to the use of an ambient scribe for clinic note documentation during this visit. Orders: Orders T Spot TB Today Z00.00 - Encounter for general adult medical examination without abnormal findings HCG Quantitative Today N92.6 - Irregular menstruation, unspecified Medications: New nicotine (polacrilex) 2 mg buccal Q2H 40 ea 0RF hydroxyzine HCl 10 mg PO TID PRN 30 tabs 0RF anxiety cholecalciferol (vitamin D3) 25 mcg PO DAILY 90 caps 3RF Refilled mirtazapine 7.5 mg PO BEDTIME 30 tabs 0RF Discontinued nicotine Discontinued Reason: Patient no longer taking 1 patch transdermal DAILY 28 ea 0RF
[2024-12-03 11:02] VITALS: BP 110/62; PULSE 65; O2SAT 99; BMI 21.2
--- OUTSIDE RECORDS SUMMARY | 2024-12-03 11:31 | XMS_ITS | Clinical Summary ---
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 2016 Term 37w 2d 3090 g (109 oz) M Vag-S pont Epidur al N Livin g Alexan meaghan Complications:None [place] [place] Term Vag-S pont Livin g [...] 5 Years) and At-Risk Patients (6 to 49 Years) (1 of 2 - PCV) 2017 Cholesterol Screening (Lipid Panel) 04/08/2022 03/29/2017 Social Influencers of Health Screening 04/08/2022 COVID-19 Vaccine ( season) 2023 08/20/2021, 01/06/2021, 12/09/2020 Depression Screening 04/30/2024 Influenza Vaccine (#1) 2024 04/09/2023, 2022 Cervical Cancer Screening: Pap Smear 06/29/2025 06/29/2022, [...] C antibody (05/29/2024 2:25 PM EST) Pathologist [facility] Hepatitis C Antibody Negative Negative LAB CHEMISTRY METHOD 05/29/2024 5:36 PM EST [facility] Blood Venous blood specimen / Unknown Venipuncture / Unknown 05/29/2024 2:25 PM EST 05/29/2024 2:25 PM EST us Chio Raymundo CNM LAB BLOOD ORDERABLES Final Res ult [facility] [address] [place] [address], [place] [phone] * HIV 1,2 antibody, p24 antigen with reflex to differentiation (05/29/2024 2:25 PM EST) HIV Combo AB/AG Negative Negative LAB CHEMISTRY METHOD 05/29/2024 5:37 PM EST [facility] Blood Venous blood specimen / Unknown Venipuncture / Unknown 05/29/2024 2:25 PM EST 05/29/2024 2:25 PM EST Narrative [facility] - 05/29/2024 5:37 PM EST This assay is a 4th generation assay allowing for earlier detection of HIV infection by detecting the presence of the HIV-1 p24 antigen as well as the traditional antibodies to HIV type 1 (including group O) and type 2. Use of a 4th generation assay is the current CDC recommendation for HIV screening. us Chio FIELD LAB BLOOD ORDERABLES Final Res ult [facility] [address] [place] [address], [place] [phone] * Chlamydia trachomatis and Neisseria gonorrhoeae molecular study (05/29/2024 2:03 PM EST) Neisseria gonorrhoeae PCR Negative Negative LAB MOLECULAR DIAGNOSTICS METHOD 05/30/2024 9:07 AM EST [facility] Chlamydia trachomatis PCR Negative Negative LAB MOLECULAR DIAGNOSTICS METHOD 05/30/2024 9:07 AM [facility] Swab Cervix uteri structure / Unknown Non-blood Collection / Unknown 05/29/2024 2:03 PM EST 05/29/2024 2:03 PM EST us Chio FIELD LAB MICROBIOLOGY - GENERAL ORD ERABLES Final Result [facility] [address] [place] [address], [place] [phone] * Pap smear (06/29/2022) 06/29/2022 Narrative HISTORICAL TESTING LAB RESULTING AGENCY - 07/10/2022 6:40 AM EDT [id number] THINPREP PAP, IMAGED: NEGATIVE FOR SQUAMOUS INTRAEPITHELIAL [...] Most Recently Relevant to Health Maintenance Insurance [facility] Care Teams Master Brewer Relationship Specialty Start Date End Date Mary Ellen Kapadia MD [address] [place] [phone] PCP - General Internal Medicine 12/01/20
== END 2024-12-03 11:45 | disposition home or self-care (01) ==
LOC: HO.HMCH 10:50
PROVIDERS: PCP Nurse Practitioner Family
DX: F41.9 Anxiety disorder, unspecified (principal); F32.A Depression, unspecified; K58.9 Irritable bowel syndrome, unspecified; F17.200 Nicotine dependence, unspecified, uncomplicated; R55 Syncope and collapse; R07.81 Pleurodynia; E55.9 Vitamin D deficiency, unspecified; N92.6 Irregular menstruation, unspecified

== ENCOUNTER → 2024-12-03 10:49 | Outpatient (BNVA) | payer OTHER, SELFPAY | PROVIDERS: PCP Nurse Practitioner Family | DX: R07.81 Pleurodynia (principal); F41.9 Anxiety disorder, unspecified; F32.A Depression, unspecified; N92.6 Irregular menstruation, unspecified; K58.9 Irritable bowel syndrome, unspecified; F17.210 Nicotine dependence, cigarettes, uncomplicated; R55 Syncope and collapse; E55.9 Vitamin D deficiency, unspecified | CPT/HCPCS: 99212 ==